=== PATIENT | female | born 1950 | race Caucasian/White ===

== ENCOUNTER 2023-07-18 03:57 | Inpatient (IN) | payer OTHER, SELFPAY ==
[2023-07-18] VITALS (65 sets, daily range): BP systolic 61–161; BP diastolic 44–121; PULSE 60–153; RESP 14–24; TEMP 36.1–39.4; O2SAT 90–99; BMI 38.4; BMI 35.1
[2023-07-18] MEDS: Etomidate 20 MG/10 ML Vial IV (04:02)
[2023-07-18] MEDS: Succinylcholine Chloride 200 MG/10 ML SYRINGE 100 MG IV (04:03)
--- NOTE | 2023-07-18 04:06 | EKG12_ITS ---
Test Reason : S/P CARDIAC ARREST Blood Pressure : / mmHG Vent. Rate : 150 BPM Atrial Rate : 000 BPM P-R Int : 000 ms QRS Dur : 098 ms QT Int : 284 ms P-R-T Axes : 000 003 085 degrees QTc Int : 448 ms Critical Test Result: High HR Supraventricular tachycardia Septal infarct , age undetermined ST & T wave abnormality, consider lateral ischemia Abnormal ECG Confirmed by YOSEF MCGILL, BRENDA ([id number]), photo editor RAÚL BARFIELD ([id number]) on 07/19/2023 5:56:17 AM Referred By: SHELLEY Confirmed By:BRENDA NAVAS MD
[2023-07-18] MEDS: Propofol 200 MG/20 ML Vial 60 MG IV BOLUS ×4 (04:14→06:01)
[2023-07-18] MEDS: fentaNYL drip 100 ML 2.5 MCG CONT INF (04:20)
--- NOTE | 2023-07-18 04:20 | RAD_ITS ---
EXAM: XR CHEST, 1 VIEW CLINICAL INDICATION: ett TECHNIQUE: Frontal view of the chest. COMPARISON: No relevant prior studies available. FINDINGS: LUNGS AND PLEURAL SPACES: Patchy opacity left lung base may be due to atelectasis and/or pneumonia. Opacity right lung apex may be due to atelectasis, pneumonia, or a mass. No pneumothorax. No effusion. HEART: Unremarkable. Cardiac silhouette not enlarged. MEDIASTINUM: Central airways and mediastinal contour are unremarkable. BONES/JOINTS: Unremarkable. No acute fracture. SOFT TISSUES: Unremarkable. TUBES, LINES AND DEVICES: Endotracheal tube tip is 2.1 cm above the jinny. NG tube is in the stomach. RAD/Chest 1 View (Portable) IMPRESSION: 1. Patchy opacity left lung base may be due to atelectasis and/or pneumonia. 2. Opacity right lung apex may be due to atelectasis, pneumonia, or a mass. 3. Endotracheal tube tip is 2.1 cm above the jinny. 4. NG tube is in the stomach. Electronically Signed: Marquise Farrell MD at 4:39 EST ,
[2023-07-18] MEDS: 0.9% Normal Saline (1000mL) 1,000 ML 1000 ML IV (04:21)
[2023-07-18 04:30] LABS: Absolute Lymphocyte Count 5.27 X10^3/uL (0.83-4.51); Absolute Neutrophil Count 12.8 X10^3/uL (2.0-7.7); Basophil# 0.11 X10^3/uL; Basophil% 0.6 % (0-1); Eosinophil# 0.11 X10^3/uL; Eosinophils% 0.6 % (0-5); Hematocrit 47.3 % (37-47); Hemoglobin 15.7 g/dL (12.0-15.0); Lymphocyte # 5.27 X10^3/ul (0.83-4.51); Lymphocyte % 27.3 % (19-41); Mean Corp Hgb Conc 33.2 g/dL (32-36); Mean Corpuscular Hgb 31.8 pg (27.0-32.0); Mean Corpuscular Volume 95.7 fL (81-99); Mean Platelet Vol. 10.6 fl (6.2-12.0); Monocyte# 0.89 X10^3/uL; Monocyte% 4.6 % (0-10); NRBC Flagged by Analyzer 0 % (0-5); Neutrophil # 12.79 X10^3/uL (2.7-7.7); Neutrophil % 66.3 % (47-70); POSITIVE DIFFERENTIAL YES; Platelet Count 282 K/mm3 (150-450); RBC Distribution Width CV 12.6 % (11.6-14.6); RBC Distribution Width SD 44.6 fl (35.1-43.9); Red Blood Count 4.94 M/mm3 (4.2-5.4); White Blood Count 19.3 K/mm3 (4.4-11.0)
[2023-07-18 04:31] LABS: Differential Indicated SCAN CRITERIA MET
[2023-07-18] MEDS: Propofol 10MG/Ml 1,000 MG/100 ML Bottle 6.3 MG CONT INF (04:35)
[2023-07-18] MEDS: Heparin Injection (Vial) 5,000 UNIT/ML VIAL 4000 UNIT IV (04:44)
[2023-07-18] MEDS: HEPARIN/D5w 25,000 UNITS 25,000 UNITS/250 ML IV.SOLN. 10 UNITS CONT INF (04:47)
--- NOTE | 2023-07-18 04:48 | EX.ED.DYSGE1 ---
HPI History of Present Illness Chief Complaint: Unresponsive Informant: family and EMS Narrative Narrative: Patient presents via EMS with chest pain and unresponsiveness. EMS states they were called for a female with chest pain. They evaluated the patient in the house and obtained an EKG and transmitted this. This showed ST depressions in V2, V3, and V4 concerning for potential posterior infarct. EMS states they walked the patient to the squad because the porch was icy and smelly. Once in the squad patient became unresponsive. Defib pads were placed on the patient and she was in ventricular fibrillation. She was shocked 1 time at 200 J. She had return of pulse with this. She had shallow breathing. There was 1 medic in the back of the squad tried to manage the patient during transport. On arrival patient is moaning but does not respond to questions. Patient is electively intubated upon arrival. Family states that she is been having chest pain recently. also states that she has had some cough and congestion and thought she had a cold. She did vomit tonight just before EMS arrived. PFSH PFS Medical History Heart murmur Hypertension Medical History unable to obtain Home Medications amlodipine 5 mg tablet 5 mg PO DAILY 07/18/23 [History Last Taken Unknown] atorvastatin 40 mg tablet 40 mg PO DAILY 07/18/23 [History Last Taken Unknown] ezetimibe 10 mg tablet 10 mg PO QHS 07/18/23 [History Last Taken Unknown] lisinopril 20 mg-hydrochlorothiazide 12.5 mg tablet 1 tab PO DAILY 07/18/23 [History Last Taken Unknown] sertraline 100 mg tablet 100 mg PO DAILY 07/18/23 [History Last Taken Unknown] Allergy/AdvReac Type Severity Reaction Status Date / Time Penicillins Allergy PT UNABLE Verified 07/18/23 04:43 TO RESPOND-NEEDS F/U Surgical History unable to obtain Social History Smoking Status: Never smoker ROS ROS ED Review of Systems ROS Unobtainable: due to endotracheal tube EXAM Physical Exam Narrative Exam Narrative: Decreased responsiveness. Moaning and turning her head [id number]. Not responsive to questions. Does not follow commands. Const Vital Signs: 07/18/23 03:58 07/18/23 04:15 07/18/23 04:30 Temperature 97 F L Temperature Source Temporal Pulse Rate 153 H 152 H 109 H Respiratory Rate 24 H 17 20 H Blood Pressure 161/121 H 142/86 H Blood Pressure Mean 134 104 Pulse Ox 92 94 94 Oxygen Delivery Method Non-Rebreather Mechanical Ventilator Mechanical Ventilator Oxygen Flow Rate (L/min) 15 Fraction of Inspired Oxygen (FIO2) 100 07/18/23 04:55 07/18/23 05:18 07/18/23 04:15 Temperature Temperature Source Pulse Rate 123 H 109 H 138 H Respiratory Rate 24 H 23 H 23 H Blood Pressure 96/66 101/68 Blood Pressure Mean 76 79 Pulse Ox 96 96 94 Oxygen Delivery Method Room Air Mechanical Ventilator Oxygen Flow Rate (L/min) Fraction of Inspired Oxygen (FIO2) 100 100 07/18/23 05:30 Temperature Temperature Source Pulse Rate 112 H Respiratory Rate 16 Blood Pressure 105/67 Blood Pressure Mean 79 Pulse Ox 98 Oxygen Delivery Method Mechanical Ventilator Oxygen Flow Rate (L/min) Fraction of Inspired Oxygen (FIO2) Positive obese Nutritional Appearance: obese HEENT Reports moist mucous membranes HEENT Narrative: No evidence of head trauma. Chest Wall inspection of chest normal and palpation of chest normal Resp Resp Narrative: Rales in the bilateral bases. Cardio Rate: tachycardic GI non-tender Palpation: soft Extremity normal to inspection Neuro Neuro Narrative: Decreased responsiveness. Moans but does not respond to questions or follow commands. Skin no rashes or lesions noted MDM MDM MDM Narrative Medical decision making narrative: Patient electively intubated on arrival. IV lines were established and patient given 20 mg of etomidate and 100 mg of succinylcholine. Patient was intubated using glide scope on first attempt. Good color change noted as well as bilateral breath sounds. EKG obtained to evaluate for cardiac arrhythmia/ischemia. Chest x-ray obtained to evaluate for acute lung pathology, cardiac size, or mediastinal abnormality. Labwork obtained to evaluate for leukocytosis, anemia, and electrolyte derangement. History & Record Review Discussion w/independent historian: EMS personnel and Family Lab Data Attestation: I reviewed the patient's lab results. Labs: Laboratory Results - last 24 hr 07/18/23 07/18/23 07/18/23 04:10 04:40 05:00 WBC 19.3 H RBC 4.94 Hgb 15.7 H Hct 47.3 H MCV 95.7 MCH 31.8 MCHC 33.2 RDW Std Deviation 44.6 H RDW Coeff of Ronnell 12.6 Plt Count 282 MPV 10.6 Immature Gran % (Auto) 0.600 Neut % (Auto) 66.3 Lymph % (Auto) 27.3 [place] % (Auto) 4.6 Eos % (Auto) 0.6 Baso % (Auto) 0.6 Absolute Neuts (auto) 12.8 H Absolute Lymphs (auto) 5.27 H Nucleated RBC % 0 Differential Comment SCANNED PT 13.2 INR 1.0 APTT 29.0 D-Dimer Quant (PE/DVT) 0.43 Sodium 140 Potassium 3.8 Chloride 103 Carbon Dioxide 21.0 Anion Gap 16 H BUN 10 Creatinine 0.83 Estim Creat Clear Calc 56.75 Est GFR (MDRD) Af Amer 87 Est GFR (MDRD) Non-Af 72 BUN/Creatinine Ratio 12.0 Glucose 220 H Lactic Acid 5.4 H* Calcium 8.8 Total Bilirubin 0.40 Direct Bilirubin 0.12 AST 45 H ALT 46 Alkaline Phosphatase 100 Total Creatine Kinase 72 Troponin I High Sens 164 H* B-Natriuretic Peptide 130.6 H Total Protein 8.3 H Albumin 3.8 Globulin 4.5 H Triglycerides 202 H Lipase 39 Urine Opiates Screen NEGATIVE Urine Methadone Screen NEGATIVE Ur Barbiturates Screen NEGATIVE Ur Phencyclidine Scrn NEGATIVE Ur Amphetamines Screen NEGATIVE MDMA (Ecstasy) Screen NEGATIVE U Benzodiazepines Scrn NEGATIVE Urine Cocaine Screen NEGATIVE U Cannabinoids Screen NEGATIVE Ur Drug Screen Comment Ethyl Alcohol < 3.0 ABG Data ABG results: ABG 07/18/23 05:01 Specimen Type ART Sample Site R Radial pH 7.28 L Bicarbonate Actual 23.4 Total CO2 25 Base Excess -3 L O2 Saturation 93 L O2 % 100.0 ABG pCO2 50.1 H ABG pO2 76 Catalino Test Positive Respiration Rate 14 O2 Delivery Device Adult Vent Vent Mode AC Tidal Volume 450.0 POC PEEP 8 Radiography Chest X-Ray - ED: 1 View, Read by ED Physician, Right Infiltrate, Left Infiltrate and - (ET tube terminates just superior to the jinny.) Diagnostic Testing: Clinical Impression(s) from Imaging Studies Chest X-Ray 07/18/23 04:20 IMPRESSION: 1. Patchy opacity left lung base may be due to atelectasis and/or pneumonia. 2. Opacity right lung apex may be due to atelectasis, pneumonia, or a mass. 3. Endotracheal tube tip is 2.1 cm above the jinny. 4. NG tube is in the stomach. Electronically Signed: Marquise Farrell MD at 4:39 EST , EKG Initial EKG: Attestation: I personally reviewed and interpreted this EKG as follows: Interpretation: Sinus Tachycardia (Sinus tach at 150.) Treatment and Re-Evaluation :: EKG on arrival shows sinus tachycardia at 150. The ST depression previously noted on the prehospital EKG is not evident. I sent both the prehospital EKG and the EKG obtained in the ED to Dr. Roque, cardiology. He agreed patient does not meet STEMI criteria at this time. He does wish the patient to be started on heparin. Patient is sedated with fentanyl and propofol. CBC was elevated white count of 19.3 with normal differential. Hemoglobin is concentrated at 15.7. Chemistry studies are largely unremarkable with normal renal function. Potassium is normal at 3.8. Glucose is 220. CK is normal at 72. Troponin is 164. LFTs and lipase are unremarkable. EtOH is negative. D-dimer is normal at 0.43. ABG reveals a pH of 7.277, pCO2 of 50.1, pO2 of 76, bicarb 23.4, sat 92.9%. Portable chest x-ray per my interpretation reveals bilateral infiltrates. Patient was reportedly vomiting just before EMS arrival and I do have some concern that she may have aspirated. She has also had cold-like symptoms recently and this may be pneumonia from her illness. She is given a dose of Rocephin and Flagyl to cover aspiration. Family has been updated multiple times during the patient's stay. She is following commands at this time. I spoke with the hospitalist who will see the patient for admission to the ICU. Critical Care Time Critical Care Time: Yes Critical care time (excluding procedures): 30-74 minutes (60 minutes), Including time spent:, Discussing w/Patient &/or Family/Rivet Hammer Machine Operator, Discussing w/Consultants, Arranging Admission or Transfer and Performing Direct Patient Care at Bedside Discharge Plan Dx/Rx/DC Orders Clinical Impression: Elevated troponin, Cardiac arrest with ventricular fibrillation, Pneumonia Disposition Disposition: Acute Care Hospital [facility] Discharge Date/Time: 07/18/23 06:14
[2023-07-18 04:51] LABS: CPK Total, Creatine Kinase 72 U/L (26-192); Triglycerides 202 mg/dL
[2023-07-18 04:55] LABS: D-Dimer Quantitative (DVT/PE) 0.43 FEU/ug/m (0.27-0.49)
[2023-07-18] MEDS: Ceftriaxone 1 GM/50 ML BAG IV (05:00)
[2023-07-18 05:01] LABS: Alcohol, Blood (Medical)-Serum < 3.0 mg/dL
[2023-07-18] MEDS: Midazolam 2 MG/2 ML Syringe IV ×2 (05:05→05:45)
[2023-07-18 05:07] LABS: Allen Test Positive; Base Excess -3 mmol/L (-2 to +2); Bicarbonate 23.4 mmol/L (22-26); Blood Gas Specimen Type ART; Mode AC; O2 Delivery Device Adult Vent; PEEP 8; PO2 76 mmHG (75-100); RR 14; SITE R Radial; SO2 93 % (95-99); Total Carbon Dioxide 25 mmol/L; pCO2 50.1 mmHg (35-45); pH 7.28 (7.35-7.45)
[2023-07-18 05:09] LABS: AST(SGOT) 45 U/L (15-37); Alanine Aminotransfer ALT/SGPT 46 U/L (13-56); Albumin, Serum 3.8 g/dL (3.2-5.0); Alkaline Phosphatase 100 U/L (45-117); Anion Gap 16 (5-15); BUN 10 mg/dL (7-18); Bilirubin, Direct 0.12 mg/dL (0.00-0.30); Calcium,Total 8.8 mg/dL (8.5-10.1); Chloride 103 mmol/L (98-107); Creatinine, Serum 0.83 mg/dL (0.55-1.02); EST Glomerular Filtration Rate 72 mL/min (>60); Est Glom Filt Rate - Afr Amer 87 mL/min (>60); Estimated Creatinine Clearance 56.75 ml/min; Globulin 4.5 g/dL (2.2-4.2); Glucose 220 mg/dL (74-106); Lipase 39 U/L (13-75); Potassium 3.8 mmol/L (3.5-5.1); Protein, Total 8.3 g/dL (6.4-8.2); Sodium Level 140 mmol/L (136-145); Troponin-I HS (w/2H Reflex) 164 pg/mL (3.0-54.0)
[2023-07-18] MEDS: metroNIDAZOLE 500 MG/100 ML BAG 100 MG IV (05:17)
[2023-07-18 05:18] LABS: Prothrombin Time (Protime)PT. 13.2 SECONDS (11.7-14.9)
[2023-07-18 05:36] LABS: BNP,B-Type NATRIURETIC PEPTIDE 130.6 pg/mL (0-100)
[2023-07-18 05:38] LABS: Lactic Acid 5.4 mmol/L (0.4-1.9)
[2023-07-18 05:38] LABS: Amphetamine Urine VISTA NEGATIVE (<1000 ng/mL); Barbiturate Urine VISTA NEGATIVE (< 200 ng/mL); Benzodiazepine Urine VISTA NEGATIVE (< 200 ng/mL); Cocaine Urine VISTA NEGATIVE (< 300 ng/mL); Ecstacy Urine VISTA NEGATIVE (< 500 ng/mL); Methadone Urine VISTA NEGATIVE (< 300 ng/mL); PCP Urine VISTA NEGATIVE (< 25 ng/mL); THC Urine VISTA NEGATIVE (< 50 ng/mL); Vista UDS pH Range 5
--- NOTE | 2023-07-18 05:44 | PCM.HP.STD ---
HPI - General General Date of Admission: 07/18/23 Date of Service: 07/18/23 Chief Complaint: Chest pain and unresponsiveness HPI Narrative JASON RAUSCH, is a 72 F with a past medical history of essential hypertension, hyperlipidemia, obesity; with BMI of 38.4 this admission, known heart murmur and depression who presents to [facility] ER with complaints of chest pain and unresponsiveness. Mrs. Shafer is not a reliable historian at this time as she was shocked by EMS and then intubated shortly after arrival so information was gathered from chart, medical staff and computer. According to the records EMS was called for female with chest pain. There initial EKG revealed ST depressions in V2, V3 and V4 concerning for potential inferior AZ and once she was in the squad patient became unresponsive. According to her cardiac exercise specialist she was noted to be in ventricular fibrillation and she was shocked 1 time at 200 J with return of normal sinus rhythm. Upon arrival she was noted to have shallow breathing and was moaning but did not respond to questions and was then electively intubated. Her family informed the ER that she had been having chest pain recently in addition to cough and congestion so they thought she had a cold. Her also stated that she vomited twice with bilious emesis prior to EMS's arrival. Her family denies any personal history of cardiac arrest, AZ or other similar previous episdoes. In the ER her initial troponin was noted to be elevated at 164 pg/mL consistent with a suspected non-ST elevation AZ along with laboratory evidence of lactic acidosis of 5.4 mmol/L present on admission with a pH of 7.28/pCO2 25/PaO2 of 93/bicarbonate 23.4 on ventilator with a respiratory rate 14/tidal volume 450 with 8 of PEEP and 100% FiO2 in the setting of V-fib arrest complicated by suspected bibasilar pneumonia due to aspiration on chest x-ray with leukocytosis of 19.3 present on admission and a fever of 101.1 degrees Fahrenheit present on admission concerning for possible underlying sepsis and she was then admitted to the ICU for ongoing care for a stay that is expected to be greater than 48 hours. [facility] Medical History Heart murmur Hypertension Medical History unable to obtain Home Medications amlodipine 5 mg tablet 5 mg PO DAILY 07/18/23 [History Last Taken Unknown] atorvastatin 40 mg tablet 40 mg PO DAILY 07/18/23 [History Last Taken Unknown] ezetimibe 10 mg tablet 10 mg PO QHS 07/18/23 [History Last Taken Unknown] lisinopril 20 mg-hydrochlorothiazide 12.5 mg tablet 1 tab PO DAILY 07/18/23 [History Last Taken Unknown] sertraline 100 mg tablet 100 mg PO DAILY 07/18/23 [History Last Taken Unknown] Allergy/AdvReac Type Severity Reaction Status Date / Time Penicillins Allergy PT UNABLE Verified 07/18/23 04:43 TO RESPOND-NEEDS F/U Surgical History unable to obtain Social History Smoking Status: Never smoker ROS ROS Narrative Patient is intubated and sedated therefore review of systems was not possible at this time. Review of Systems ROS Unobtainable: due to endotracheal tube and due to mental condition Vital Signs Vital Signs Vital Signs: 07/18/23 03:58 07/18/23 04:15 07/18/23 04:30 Temperature 97 F L Temperature Source Temporal Pulse Rate 153 H 152 H 109 H Respiratory Rate 24 H 17 20 H Blood Pressure 161/121 H 142/86 H Blood Pressure Mean 134 104 Pulse Ox 92 94 94 Oxygen Delivery Method Non-Rebreather Mechanical Ventilator Mechanical Ventilator Oxygen Flow Rate (L/min) 15 Fraction of Inspired Oxygen (FIO2) 100 07/18/23 04:55 07/18/23 05:18 07/18/23 04:15 Temperature Temperature Source Pulse Rate 123 H 109 H 138 H Respiratory Rate 24 H 23 H 23 H Blood Pressure 96/66 101/68 Blood Pressure Mean 76 79 Pulse Ox 96 96 94 Oxygen Delivery Method Room Air Mechanical Ventilator Oxygen Flow Rate (L/min) Fraction of Inspired Oxygen (FIO2) 100 100 Weight Weight: 230 lb 13.184 oz Body Mass Index (BMI) 38.4 Physical Exam Const Constitutional Narrative: Patient is intubated and sedated. Patient denies pain at this time. HEENT normocephalic and head/scalp atraumatic HEENT Narrative: ET tube in place. Eyes PERRL Neck no lymphadenopathy and supple Resp Resp Narrative: Diminished breath sounds throughout with bibasilar rhonchi. Auscultation: rhonchi Cardio regular rate and regular rhythm Cardio Narrative: Tachycardia noted at ~112 bpm. GI normal to inspection, nondistended, normoactive bowel sounds, soft to palpation, non-tender and non-distended GI Narrative: Obese. Extremity normal to inspection Skin Skin Narrative: Patient has no evidence of rash at this time. Neuro Neuro Narrative: Patient is sedated on ventilator and intubated. Psych Psych Narrative: Sedated on ventilator and intubated. Results Medical Records Data Attestation: I reviewed the patient's medical records Lab / Micro Data Attestation: I reviewed the patient's lab results. 07/18/23 04:10 07/18/23 04:10 Labs: Laboratory Results - last 24 hr 07/18/23 04:10: WBC 19.3 H, RBC 4.94, Hgb 15.7 H, Hct 47.3 H, MCV 95.7, MCH 31.8, MCHC 33.2, RDW Std Deviation 44.6 H, RDW Coeff of Ronnell 12.6, Plt Count 282, MPV 10.6, Immature Gran % (Auto) 0.600, Neut % (Auto) 66.3, Lymph % (Auto) 27.3, [place] % (Auto) 4.6, Eos % (Auto) 0.6, Baso % (Auto) 0.6, Absolute Neuts (auto) 12.8 H, Absolute Lymphs (auto) 5.27 H, Nucleated RBC % 0, PT 13.2, INR 1.0, APTT 29.0, D-Dimer Quant (PE/DVT) 0.43, Sodium 140, Potassium 3.8, Chloride 103, Carbon Dioxide 21.0, Anion Gap 16 H, BUN 10, Creatinine 0.83, Estim Creat Clear Calc 56.75, Est GFR (MDRD) Af Amer 87, Est GFR (MDRD) Non-Af 72, BUN/Creatinine Ratio 12.0, Glucose 220 H, Calcium 8.8, Total Bilirubin 0.40, Direct Bilirubin 0.12, AST 45 H, ALT 46, Alkaline Phosphatase 100, Total Creatine Kinase 72, Troponin I High Sens 164 H*, B-Natriuretic Peptide 130.6 H, Total Protein 8.3 H, Albumin 3.8, Globulin 4.5 H, Triglycerides 202 H, Lipase 39, Ethyl Alcohol < 3.0 07/18/23 04:40: Lactic Acid 5.4 H* 07/18/23 05:00: Urine Opiates Screen NEGATIVE, Urine Methadone Screen NEGATIVE, Ur Barbiturates Screen NEGATIVE, Ur Phencyclidine Scrn NEGATIVE, Ur Amphetamines Screen NEGATIVE, MDMA (Ecstasy) Screen NEGATIVE, U Benzodiazepines Scrn NEGATIVE, Urine Cocaine Screen NEGATIVE, U Cannabinoids Screen NEGATIVE, Ur Drug Screen Comment ABG Data ABG results: ABG 07/18/23 05:01 Specimen Type ART Sample Site R Radial pH 7.28 L Bicarbonate Actual 23.4 Total CO2 25 Base Excess -3 L O2 Saturation 93 L O2 % 100.0 ABG pCO2 50.1 H ABG pO2 76 Catalino Test Positive Respiration Rate 14 O2 Delivery Device Adult Vent Vent Mode AC Tidal Volume 450.0 POC PEEP 8 Attestation: I personally reviewed and interpreted this ABG as follows: Imagaing Radiology Impression Chest X-Ray 07/18/23 04:20 IMPRESSION: 1. Patchy opacity left lung base may be due to atelectasis and/or pneumonia. 2. Opacity right lung apex may be due to atelectasis, pneumonia, or a mass. 3. Endotracheal tube tip is 2.1 cm above the jinny. 4. NG tube is in the stomach. Electronically Signed: Marquise Farrell MD at 4:39 EST , Assessment & Plan Assessment/Plan (1) Cardiac arrest with ventricular fibrillation: (2) Elevated troponin: (3) Pneumonia: QUALIFIERS: Laterality: bilateral Lung location: lower lobe of lung Pneumonia type: due to unspecified organism Qualified Code(s): J18.9 - Pneumonia, unspecified organism (4) Sepsis: QUALIFIERS: Acute respiratory failure type: with hypoxia Sepsis acute organ dysfunction status: with acute organ dysfunction Sepsis type: sepsis due to unspecified organism Severe sepsis acute organ dysfunction type: acute respiratory failure Severe sepsis shock status: without septic shock Qualified Code(s): A41.9 - Sepsis, unspecified organism; R65.20 - Severe sepsis without septic shock; J96.01 - Acute respiratory failure with hypoxia PLAN: Plan 1. Cardiac arrest with ventricular fibrillation and elevated troponin of 164 ng/mL present on admission consistent with suspected non-ST elevation [place] in the setting of a known heart murmur - Admit to ICU. Continue IV heparin and initiate treatment with aspirin, Plavix and statin. Serialize troponin. Check echocardiogram to evaluate left ventricular ejection fraction. Finally, we will consult professor of historical theology on-call to see this patient on rounds in the a.m. for recommendations regarding possible left heart cath with help appreciated in advance. 2. Bibasilar pneumonia likely due to aspiration with leukocytosis of 19.3 present on admission, fever of 101.1 ?F present on admission and lactic acidosis of 5.4 mmol/L present on admission triggering criteria for sepsis complicating #1 - Continue broad-spectrum antibiotics and await culture and sensitivity data. Give Tylenol as needed for pain or fever. Recheck lactate to ensure positive response to therapy. 3. Acute hypoxic respiratory failure requiring intubation arising from #1 & #2 - Wean ventilator as tolerated. 4. Essential hypertension - Hold scheduled antihypertensives in light of #2. Give IV hydralazine as needed for systolic blood pressure greater than 160 mmHg. 5. Hyperlipidemia - Resume home regimen and recheck lipid profile. 6. Obesity; with BMI of 38.4 this admission - Weight loss will be recommended. Check TSH. 7. Depression - Restart home medications when patient regained consciousness. 8. DVT prophylaxis - Patient already on IV heparin for #1. Total time: Approximately 85 minutes. Sepsis Attestation Sepsis Attestation: Agree w/Sepsis Date exam was performed: 07/18/23 Time exam was performed: 06:00 Possible Source of Sepsis: Pulmonary Sepsis Organ Dysfunction Criteria Present: Acute Respiratory Failure (New need for BiPAP/CPAP or MV), Lactic Acid > 2 mmol/L and New/Unexplained change in mental status Fluid Resuscitation Fluid resuscitation indicated?: Yes Fluid Resuscitation ordered: 30 ml/kg fluid bolus ordered Amount of fluid ordered: 3 Sepsis Note Date exam was performed: 07/18/23 Time exam was performed: 07:09 Sepsis Attestation: Sepsis re-evaluation was performed Response to fluids: Fluid responsive hypotension Charges/Coding Visit Charges Inpatient E&M: 08816 Init Hosp L3
[2023-07-18] MEDS: Midazolam 50 MG in 0.9% Normal Saline (100mL Bag) 90 ML CONT INF (05:46)
[2023-07-18] MEDS: 0.9% Normal Saline (1000mL) 1,000 ML 150 ML IV (05:48)
[2023-07-18 05:58] LABS: Differential Comment SCANNED
--- NOTE | 2023-07-18 06:16 | ECHOCS_ITS ---
Reason For Study: CARDIAC ARREST Procedure This was a 2D Doppler, Color Flow transthoracic echocardiogram. The study was technically difficult. Exam performed portable in ICU/CCU. Left Ventricle Normal LV size. The estimated ejection fraction is 25 %. Severe segmental systolic dysfunction (see wall motion). Stage 2 diastolic dysfunction. [place] is akinetic. Mid-anteroseptal : Hypokinetic. Mid- Posterior: Hypokinetic. Mid-Inferior: Hypokinetic. Mid-inferoseptal : Hypokinetic. Right Ventricle Normal RV size. Normal systolic function. Atria The left and right atria are normal. Mitral Valve There is Moderate focal posterior mitral annular calcification. Tricuspid Valve Normal tricuspid valve. Trivial tricuspid valve insufficiency. Right ventricular systolic pressure estimated to be 53 mmHg. Aortic Valve Trisinus/trileaflet aortic valve. Mild focal aortic valve calcification. Mild aortic stenosis. Peak aortic valve gradient 16 mmHg. Mean aortic valve gradient 10 mmHg. Pulmonic Valve The pulmonic valve is not well visualized. Great Vessels Normal aortic root. Pericardium/Pleural No pericardial effusion. Medication Diluted definity 6ml given slow IV push to enhance endocardial definition. MMode/2D Measurements & Calculations LVIDd: 4.3 cm IVSd: 1.1 cm LVOT diam: 2.0 cm LVIDs: 3.1 cm LVPWd: 1.1 cm RVDd: 3.3 cm FS: 29.4 % LVOT area: 3.2 cm2 Ao root diam: 3.2 cm LAV(MOD-bp): 45.9 ml LVAd ap4: 27.6 cm2 LAV(MOD-bp) Indexed: 21.9 ml/m2 LVLd ap4: 7.1 cm LAV(MOD-sp2): 48.1 ml EDV(MOD-sp4): 86.0 ml LAV(MOD-sp4): 41.2 ml EDV(sp4-el): 91.5 ml LVAs ap4: 21.3 cm2 LVLs ap4: 7.0 cm ESV(MOD-sp4): 51.1 ml ESV(sp4-el): 54.7 ml EF(MOD-sp4): 40.6 % EF(sp4-el): 40.2 % SV(MOD-sp4): 34.9 ml SV(sp4-el): 36.8 ml LA A4 area: 16.3 cm2 LA dimension(2D): 4.0 cm RA A4 area: 13.0 cm2 Time Measurements MV dec time: 0.15 sec Doppler Measurements & Calculations MV E max zay: 89.0 cm/sec Lat Peak E' Zay: 5.9 cm/sec Med Peak E' Zay: 5.8 cm/sec MV A max zay: 95.0 cm/sec E/E' lat: 15.1 E/E' med: 15.4 MV E/A: 0.94 Ao V2 max: 201.6 cm/sec LV V1 max: 74.2 cm/sec SV(LVOT): 47.9 ml Ao max P.3 mmHg LV V1 max P.2 mmHg Ao V2 mean: 149.2 cm/sec LV V1 mean P.2 mmHg Ao mean P.9 mmHg LV V1 mean: 51.3 cm/sec Ao V2 VTI: 35.3 cm LV V1 VTI: 14.9 cm AV (velocity ratio): 0.42 SARAH(I,D): 1.4 cm2 SARAH(V,D): 1.2 cm2 PA V2 max: 82.5 cm/sec TR max zay: 336.1 cm/sec TR max P.2 mmHg ECHO/Echo Complete W/ Contrast Interpretation Summary The estimated ejection fraction is 25 %. Severe segmental systolic dysfunction (see wall motion). Stage 2 diastolic dysfunction. Mild aortic stenosis. Right ventricular systolic pressure estimated to be 53 mmHg. Contrast echo used/Definity. No previous echo to compare The study was technically difficult. Contrast injection was performed. Ordering Physician: Canelo Pierce Referring Physician: LALITHA CERVANTES Performed By: Bernadette Wynn RDCS
--- NOTE | 2023-07-18 06:17 | EKG12_ITS ---
Test Reason : Blood Pressure : / mmHG Vent. Rate : 079 BPM Atrial Rate : 079 BPM P-R Int : 142 ms QRS Dur : 082 ms QT Int : 396 ms P-R-T Axes : 052 012 058 degrees QTc Int : 454 ms Sinus rhythm with occasional Premature ventricular complexes Septal infarct , age undetermined Abnormal ECG Confirmed by YOSEF MCGILL, BRENDA ([id number]), senior technical editor YOSSI JEWELL ([id number]) on 07/20/2023 10:52:37 AM Referred By: KARAN Confirmed By:BRENDA NAVAS MD
[2023-07-18 06:23] LABS: Reflex Troponin-HS? (from REC) Y
[2023-07-18] MEDS: Lactated Ringers 1,000 ML 999 ML IV ×4 (07:09→10:17)
[2023-07-18] MEDS: Vancomycin HCl 2,000 MG in 0.9% Normal Saline (500mL Bag) 500 ML 250 MG IV (07:09)
[2023-07-18 07:17] LABS: Troponin-I HS 1333 pg/mL (3.0-54.0)
--- NOTE | 2023-07-18 07:20 | PCM.PN.BLA ---
Progress Note Patient is a 72-year-old lady who was brought to the emergency department following cardiac arrest while send route to the hospital. Apparently did develop ventricular fibrillation and was shocked with 200 J after she had called for chest pain. Per report patient had been sick for a couple of days prior to being admitted. Patient was emergently intubated in the ED. Checks x-ray obtained in the ED did show patchy opacity in the left lung base. Was also found to have elevated troponin. Admitted to the intensive care unit where patient is currently being managed Patient seen and examined. Initial assessment including history and physical diagnostic data and management orders reviewed will follow.
[2023-07-18 07:48] LABS: Base Excess 0 mmol/L (-2 to +2); Bicarbonate 25.7 mmol/L (22-26); Blood Gas Specimen Type ART; Mode AC; O2 Delivery Device Not entered; PEEP 8; PO2 90 mmHG (75-100); RR 14; SITE L Radial; SO2 96 % (95-99); Total Carbon Dioxide 27 mmol/L; pCO2 47.2 mmHg (35-45); pH 7.34 (7.35-7.45)
--- NOTE | 2023-07-18 08:20 | CON.PCM.CC_ITS ---
Assessment & Plan Assessment/Plan (1) Cardiac arrest with ventricular fibrillation: (2) Sepsis: QUALIFIERS: Acute respiratory failure type: with hypoxia Sepsis acute organ dysfunction status: with acute organ dysfunction Sepsis type: sepsis due to unspecified organism Severe sepsis acute organ dysfunction type: acute respiratory failure Severe sepsis shock status: without septic shock Qualified Code(s): A41.9 - Sepsis, unspecified organism; R65.20 - Severe sepsis without septic shock; J96.01 - Acute respiratory failure with hypoxia PLAN: Plan RECOMMENDATIONS: 1. Continue assist-control mode mechanical ventilation. Wean FiO2 and PEEP to maintain saturations at or above 90%. 2. Initiate empiric antimicrobials, pending infectious workup. 3. Await results of respiratory viral panel. 4. Await cardiology consultation and results of echocardiogram. 5. Continue heparin infusion for now. 6. Precedex and fentanyl for sedation. 7. Continue appropriate GI prophylaxis. IMPRESSIONS: 1. Acute combined respiratory failure in the setting of V-fib cardiac arrest Unclear precipitating etiology for ventricular fibrillation. However, the patient was urgently intubated in the emergency department. Her acid-base status has improved with invasive mechanical ventilatory support. Plan to continue current supportive measures, including assist-control mode of mechanical ventilation. FiO2 and PEEP will be weaned to maintain saturations at or above 90%. Over concerns for underlying pneumonia, the patient will be continued on broad-spectrum antimicrobials, pending infectious workup. Cardiology consultation and echocardiogram are pending. 2. Sepsis The patient presented to the hospital with sepsis due to probable pneumonia with acute sepsis related organ dysfunction as evidenced by lactic acidemia and acute respiratory failure, requiring invasive mechanical ventilatory support. The patient did receive supplemental IV fluid hydration and remains hemodynamically stable. Plan to continue broad-spectrum antimicrobials, pending infectious workup. 3. Troponin elevation/suspected NSTEMI Cardiology consultation is pending along with echocardiogram. Continue heparin infusion for now. 4. History of hypertension/hyperlipidemia/obesity/depression Complicates care, management, recovery and prognosis. Continue supportive measures as noted above. TIME: 36 minutes of critical care time, independent of procedures, was spent addressing the patient's acute combined respiratory failure, V-fib cardiac arrest, sepsis, NSTEMI, review of all data and collaboration with the care team. HPI Consult Data Date of Consult: 07/18/23 HPI Narrative Reason for Consultation: Respiratory failure HPI Narrative: The patient is a 72-year-old female, with a history as outlined below, who presented to the emergency department via EMS on July 18 with chest pain. According to documentation, EMS was contacted over concerns for chest pain. On their initial evaluation of the patient, EKG demonstrated findings concerning for potential posterior infarct. Once the patient was placed into the ambulance, she became acutely unresponsive. She was noted to be in ventricular fibrillation and was shocked at 200 J with return of spontaneous circulation. On arrival to the emergency department, she was emergently intubated. The patient has a documented history of hypertension, hyperlipidemia and heart murmur. The patient's family confirmed that the patient had been ill several days prior to her arrival with cold-like symptoms including cough and chest congestion. She apparently had 2 episodes of bilious emesis prior to EMS arrival. Initial laboratory evaluation revealed an elevated white blood cell count to 20,000. Coagulation profile was unremarkable. Chemistry profile was notable only for an elevated lactate of 5.4. Initial troponin was elevated at 164 with a BNP of 130. Toxicology and alcohol screens were negative. Chest imaging demonstrated a airspace opacity in the left lung base. The patient was initiated on supplemental IV fluids and antimicrobials. She was subsequently admitted to the medical intensive care unit for further management. [facility] Medical History Heart murmur Hypertension Medical History unable to obtain Home Medications amlodipine 5 mg tablet 5 mg PO DAILY 07/18/23 [History Last Taken Unknown] atorvastatin 40 mg tablet 40 mg PO DAILY 07/18/23 [History Last Taken Unknown] ezetimibe 10 mg tablet 10 mg PO QHS 07/18/23 [History Last Taken Unknown] lisinopril 20 mg-hydrochlorothiazide 12.5 mg tablet 1 tab PO DAILY 07/18/23 [History Last Taken Unknown] sertraline 100 mg tablet 100 mg PO DAILY 07/18/23 [History Last Taken Unknown] Allergy/AdvReac Type Severity Reaction Status Date / Time Penicillins Allergy PT UNABLE Verified 07/18/23 04:43 TO RESPOND-NEEDS F/U Surgical History unable to obtain Social History Smoking Status: Never smoker ROS Review of Systems ROS Unobtainable: due to endotracheal tube Physical Exam Const Constitutional Narrative: Intubated, sedated and mechanically ventilated. No ventilator dyssynchrony. HEENT normocephalic and head/scalp atraumatic Mouth: endotracheal tube in place and OG tube in place Eyes PERRL and EOMs intact bilaterally Neck supple General: trachea midline Chest inspection of chest normal Resp Auscultation: diminished lung sounds; Negative for rales, rhonchi or wheezes Cardio regular rate and regular rhythm GI normal to inspection, nondistended, normoactive bowel sounds Extremity no clubbing, cyanosis or edema Skin no rashes or lesions noted Neuro Sensorium / Orientation: sedated on vent Lab / Micro Data 07/18/23 04:10 07/18/23 04:10 Labs: Laboratory Results - last 24 hr 07/18/23 04:10: WBC 19.3 H, RBC 4.94, Hgb 15.7 H, Hct 47.3 H, MCV 95.7, MCH 31.8, MCHC 33.2, RDW Std Deviation 44.6 H, RDW Coeff of Ronnell 12.6, Plt Count 282, MPV 10.6, Immature Gran % (Auto) 0.600, Neut % (Auto) 66.3, Lymph % (Auto) 27.3, Humphreys % (Auto) 4.6, Eos % (Auto) 0.6, Baso % (Auto) 0.6, Absolute Neuts (auto) 12.8 H, Absolute Lymphs (auto) 5.27 H, Nucleated RBC % 0, Differential Comment SCANNED, PT 13.2, INR 1.0, APTT 29.0, D-Dimer Quant (PE/DVT) 0.43, Sodium 140, Potassium 3.8, Chloride 103, Carbon Dioxide 21.0, Anion Gap 16 H, BUN 10, Creatinine 0.83, Estim Creat Clear Calc 56.75, Est GFR (MDRD) Af Amer 87, Est GFR (MDRD) Non-Af 72, BUN/Creatinine Ratio 12.0, Glucose 220 H, Calcium 8.8, Total Bilirubin 0.40, Direct Bilirubin 0.12, AST 45 H, ALT 46, Alkaline Jigar sphatase 100, Total Creatine Kinase 72, Troponin I High Sens 164 H*, B- Natriuretic Peptide 130.6 H, Total Protein 8.3 H, Albumin 3.8, Globulin 4.5 H, Triglycerides 202 H, Lipase 39, Ethyl Alcohol < 3.0 07/18/23 04:40: Lactic Acid 5.4 H* 07/18/23 05:00: Urine Opiates Screen NEGATIVE, Urine Methadone Screen NEGATIVE, Ur Barbiturates Screen NEGATIVE, Ur Phencyclidine Scrn NEGATIVE, Ur Amphetamines Screen NEGATIVE, MDMA (Ecstasy) Screen NEGATIVE, U Benzodiazepines Scrn NEGATIVE, Urine Cocaine Screen NEGATIVE, U Cannabinoids Screen NEGATIVE, Ur Drug Screen Comment 07/18/23 06:30: Troponin I High Sens 1333 H* Micro: Microbiology 07/18/23 05:00 Urine Catheter - Catheter Legionella Antigen - Final 07/18/23 05:00 Urine Catheter - Catheter Streptococcus pneumoniae Antigen (M - Final ABG Data ABG results: ABG 07/18/23 07/18/23 05:01 07:44 Specimen Type ART ART Sample Site R Radial L Radial pH 7.28 L 7.34 L Bicarbonate Actual 23.4 25.7 Total CO2 25 27 Base Excess -3 L 0 O2 Saturation 93 L 96 O2 % 100.0 80.0 ABG pCO2 50.1 H 47.2 H ABG pO2 76 90 Catalino Test Positive Respiration Rate 14 14 O2 Delivery Device Adult Vent Not entered Vent Mode AC AC Tidal Volume 450.0 450.0 POC PEEP 8 8 Imagaing Radiology Impression Chest X-Ray 07/18/23 04:20 IMPRESSION: 1. Patchy opacity left lung base may be due to atelectasis and/or pneumonia. 2. Opacity right lung apex may be due to atelectasis, pneumonia, or a mass. 3. Endotracheal tube tip is 2.1 cm above the jinny. 4. NG tube is in the stomach. Electronically Signed: Marquise Farrell MD at 4:39 EST , Charges/Coding Procedures Hospitalists Procedures: [id number] Critical Care 1st Hr
--- NOTE | 2023-07-18 08:34 | PCM.RX.CS ---
Consult Antibiotic Management Pharmacy has been consulted to manage selected antiobiotic: Vancomycin Type of Intervention Type of Consult: New start Suspected Infection Suspected Infection: Sepsis Prior Doses of Antibiotics Prior Doses of Antibiotics Received/Current Regimen: 07/18/23 @ 0709 2000MG A LOADING DOSE Labs Labs: Sodium 140 mmol/L (136-145) 07/18/23 04:10 Potassium 3.8 mmol/L (3.5-5.1) 07/18/23 04:10 Chloride 103 mmol/L (98-107) 07/18/23 04:10 Carbon Dioxide 21.0 mmol/L (21.0-32.0) 07/18/23 04:10 Anion Gap 16 (5-15) H 07/18/23 04:10 BUN 10 mg/dL (7-18) 07/18/23 04:10 Creatinine 0.83 mg/dL (0.55-1.02) 07/18/23 04:10 Est GFR (MDRD) Af Amer 87 mL/min (>60) 07/18/23 04:10 Est GFR (MDRD) Non-Af 72 mL/min (>60) 07/18/23 04:10 BUN/Creatinine Ratio 12.0 RATIO (10-20) 07/18/23 04:10 Glucose 220 mg/dL (74-106) H 07/18/23 04:10 Microbiology Microbiology: Microbiology 07/18/23 05:00 Urine Catheter - Catheter Legionella Antigen - Final 07/18/23 05:00 Urine Catheter - Catheter Streptococcus pneumoniae Antigen (M - Final Dosing Weight Weight used for dosin kg Estimated Creatinine Clearance Estimated Creatinine Clearance: 57 Pharmacy Plan for Drug Dosing Pharmacy Plan for Drug Dosing: start 1000mg of Vancomycin 07/18/23 @ 1900 Pharmacy Service will continue to monitor and adjust dosing as required. Follow-Up Labs Follow-Up Labs: Trough: Vancomycin Date/Time Labs Ordered Labs to be done on [date and time ordered]: 07/19/23 @ 1830
[2023-07-18 08:48] LABS: Reflex Lactate? Y
[2023-07-18 08:58] LABS: Magnesium 1.8 mg/dL (1.6-2.6)
[2023-07-18] MEDS: 0.9% Saline Lock 10 ML Syringe IV ×3 (09:29→18:45)
[2023-07-18] MEDS: Pantoprazole Sodium 40 MG in 0.9% Normal Saline (100mL MB+) 100 ML 330 MG IV (09:32)
[2023-07-18] MEDS: 0.9% Normal Saline (250mL Bag) 250 ML 15 ML IV (09:33)
[2023-07-18] MEDS: Atorvastatin Calcium 40 MG Tablet GT (09:35)
[2023-07-18] MEDS: Clopidogrel Bisulfate 75 MG Tablet GT (09:35)
[2023-07-18] MEDS: dexMEDEtomidine 400 MCG in 0.9% Normal Saline (100mL Bag) 96 ML 12.7 MCG CONT INF (09:40)
[2023-07-18] MEDS: Acetaminophen 650 MG/20 ML UDC GT ×3 (09:45→22:19)
[2023-07-18] MEDS: Meropenem 1 GM in 0.9% Normal Saline (100mL MB+) 100 ML IV ×3 (09:47→21:13)
[2023-07-18] MEDS: Aspirin 81 MG TAB.CHEW GT (10:54)
[2023-07-18 11:07] LABS: Partial Thromboplast Time 51.3 Seconds (24.1-36.2)
[2023-07-18 11:12] LABS: Troponin-I HS 6731 pg/mL (3.0-54.0)
[2023-07-18] MEDS: Norepinephrine 8 MG in 0.9% Normal Saline (250mL Bag) 242 ML 9.4 MG CONT INF (11:24)
[2023-07-18] MEDS: fentaNYL drip 100 ML 12.5 MCG CONT INF (13:30)
--- NOTE | 2023-07-18 13:30 | PCM.OP.PRO ---
Procedure Report Date of Procedure: 07/18/23 Assessment & Plan Assessment/Plan (1) Sepsis: QUALIFIERS: Sepsis type: sepsis due to unspecified organism Sepsis acute organ dysfunction status: with acute organ dysfunction Severe sepsis acute organ dysfunction type: acute respiratory failure Acute respiratory failure type: with hypoxia Severe sepsis shock status: without septic shock Qualified Code(s): A41.9 - Sepsis, unspecified organism; R65.20 - Severe sepsis without septic shock; J96.01 - Acute respiratory failure with hypoxia (2) Pneumonia: QUALIFIERS: Pneumonia type: due to unspecified organism Laterality: bilateral Lung location: lower lobe of lung Qualified Code(s): J18.9 - Pneumonia, unspecified organism Procedures Radiology Radiology Access Procedures: PICC Procedure Time Out Time Out Informed consent given: Yes Consent signed: Yes Time out checklist: patient, procedure, site marked/identified, positioning of patient, supplies available, allergies confirmed and team agrees on procedure Time out verified: Yes Time out date: 07/18/23 Time out time: 12:00 PICC Line Consent Screening tool completed:: Yes Consent obtained:: Yes Consent given by (patient or responsible constitution party):: Line successful (if no, document why in comments):: Yes Insertion Reason for Insertion: Poor Venous Access Date of Insertion: 07/18/23 Ok to use: Yes Type of PICC inserted: Dual Power PICC PICC Lot #: [id number] PICC Reference #: [id number] Microintroducer Used: Yes (in kit) Ultrasound/Equipment Used: Probe Cover Kit Trimmed Length (cm): 47 Insertion Length (cm): 42 Exposed Length (cm): 5 Tip Placement: SVC (Superior Vena Cava) Placement Confirmation: 3CG Insertion Vein: Right Basilic Insertion Attempts: 1 Local Anesthesia Used: Lidocaine 1% (in kit) Dressing Applied: Statlock and Tegaderm CHG Arm Measurement above site (in cm): 37 Patient Tolerated Procedure: Well Threading Difficulties: No Comments Comment: Patient identity was verified with two patient identifiers. Informed consent was obtained and time-out was completed. Hands were sanitized. The patient was positioned supine with right arm at 90 degrees. The patient's upper arm vasculature was assessed using ultrasound, and the right basilic vein was externally marked. An external measurement was obtained of 47 cm. External leads were applied to the patient's right upper chest and laterally and inferior of the umbilicus on the mid axillary line. Cap, mask, and prep gloves were donned. The underdrape was placed under the patient's arm. The site was prepped with chlorhexidine, and tourniquet was loosely applied. Prep gloves were discarded, and hands were sanitized. The sterile kit was opened with additional supplies dropped in. Sterile gown and gloves were donned, and the patient was draped. The sterile kit was assembled with all needle, introducer, connector, and catheter flushed with sterile normal saline. The marked site of insertion was anesthetized with 1% lidocaine. Patient tolerated well. The right basilic vein was then accessed using ultrasound guidance and guidewire was inserted to safety barbara. The tourniquet was released. The access needle was removed while securing the guidewire in place. The site was again anesthetized with 1% lidocaine, prior to insertion of introducer sheath and dilator. Patient tolerated well. The catheter was trimmed to a length of 47 cm. Using 3C guidance, the catheter was then inserted through the introducer sheath, slowly. There was no resistance on insertion. Maximal p-wave, without deflection, was obtained at an insertion length of 42 cm, leaving 5 cm external. The introducer sheath was retracted and peeled away, incrementally, while keeping the catheter secured. The stylet was removed. A flushed needleless connector was attached to both ports. Blood return was verified and both ports were flushed with sterile normal saline in a pulsatile fashion. Total sterile flushes used for the insertion was 6 10 ml syringes. Finally, the insertion site was cleaned with chlorhexidine, and the catheter was secured using a StatLock. The site was covered with a Tegaderm CHG Dressing. Baseline arm circumference was obtained at the insertion site and measured 37 cm. The primary nurse, Talisha, and family are aware PICC line insertion is complete and ready for use.
--- NOTE | 2023-07-18 13:58 | CASEMGMT ---
RN CM Discharge Planning Assessment: Noted pt to be intubated on ventilator. This RN CM met with pt's spouse, 2 daughters and TJ in waiting room. Introduced RN CM role. Pt's family expressed understanding and agreeable to participating in assessment. Care providers, demographics and pharmacy verified. Admitting dx: Vfib/cardiac arrest GIOVANNY stata: 1 PCP: [facility] Specialists: none Insurance: [employer] Pharmacy Benefit: yes Preferred pharmacy: [facility] Living Will/HPOA: does not have a living will. spouse states he is pt's HPOA LNOK: spouse Ed, two daughters Living Situation: Pt lives with her spouse in a single story home with 1-2 steps to enter without handrail. 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 Transportation: pt drives at baseline DME/HHC/SNF: Pt has not required the use of DME and family denies previous skilled services. Plan: TBD Will continue to monitor pt's clinical progress for further determination of discharge disposition. Leticia Lazaro, RN ACM
--- NOTE | 2023-07-18 14:31 | CON.PCM.CA_ITS ---
<Statement entered by Ron Roque MD - 07/19/23 12:44> Pt seen & evaluated w/MARY. I personally interviewed & exam the pt. I was involved in all aspects of pt's orders, interpretation of results & treatment Assessment & Plan Assessment/Plan (1) Cardiac arrest with ventricular fibrillation:
--- NOTE | 2023-07-18 14:31 | PCM.CONS.C ---
Assessment & Plan Assessment/Plan (1) Cardiac arrest with ventricular fibrillation: (2) Elevated troponin: (3) Cardiomyopathy: (4) Sepsis: QUALIFIERS: Acute respiratory failure type: with hypoxia Sepsis acute organ dysfunction status: with acute organ dysfunction Sepsis type: sepsis due to unspecified organism Severe sepsis acute organ dysfunction type: acute respiratory failure Severe sepsis shock status: without septic shock Qualified Code(s): A41.9 - Sepsis, unspecified organism; R65.20 - Severe sepsis without septic shock; J96.01 - Acute respiratory failure with hypoxia PLAN: Plan With elevated troponins, decrease in LV function. Pt likely has CAD. However at this time can not pursue heart cath with her sepsis. For now will medically manage. She is currently needing Bp support with levophed. This is being managed by the block cuber. Recommend continuing her Plavix, Heparin, and ASA Once her infection improve will consider a heart cath, however this may need to be done on an OP basis. Based on her VS will try to maximize her cardiac medications. HPI Consult Data Date of Consult: 07/18/23 HPI Narrative HPI Narrative: JASON RAUSCH, is a 72 F who presented to [facility] ER via EMS for chest pain and unresponsiveness. EKG via EMS demonstrated ST depressions in V2,V3,V4. Pt was able to walk to squad d/t [place]. Once the pt walked in the squad she became unresponsive. Pt was noted to be in Vfib. She did recieve 1 shock at 200J. She did have a pulse return with this. Pt was intubated upon arrival. Family had noted that she recently was having chest pain but also notes that she has had a cough and URI for the last few day. She did have one episode of emesis prior to squad arrival. CXR did demonstrate bilateral pneumonia. WBC were elevated at 19.3. Lactic acid elevated at 5.4. Troponins trended 134/1333/6731. She was admitted to ICU with cardiac arrest with Vfib, acute respirator failure with sepsis. Pt is currently intubated. She did have an echo which demonstrated an EF of 25%. Pt does have a hx of hypertension and HL. [facility] Medical History (Updated 07/18/23 @ 14:32 by Judith MCELROY, PA) Cardiomyopathy Heart murmur Hypertension Medical History unable to obtain Home Medications amlodipine 5 mg tablet 5 mg PO DAILY 07/18/23 [History Last Taken Unknown] atorvastatin 40 mg tablet 40 mg PO DAILY 07/18/23 [History Last Taken Unknown] ezetimibe 10 mg tablet 10 mg PO QHS 07/18/23 [History Last Taken Unknown] lisinopril 20 mg-hydrochlorothiazide 12.5 mg tablet 1 tab PO DAILY 07/18/23 [History Last Taken Unknown] sertraline 100 mg tablet 100 mg PO DAILY 07/18/23 [History Last Taken Unknown] Allergy/AdvReac Type Severity Reaction Status Date / Time Penicillins Allergy PT UNABLE Verified 07/18/23 04:43 TO RESPOND-NEEDS F/U Surgical History unable to obtain Social History Smoking Status: Never smoker ROS Review of Systems ROS Unobtainable: due to endotracheal tube Physical Exam Const Constitutional Narrative: Intubated, sedated and mechanically ventilated. HEENT normocephalic and head/scalp atraumatic Mouth: endotracheal tube in place and OG tube in place Eyes PERRL and EOMs intact bilaterally Neck supple General: trachea midline Chest inspection of chest normal Resp Auscultation: diminished lung sounds; Negative for rales, rhonchi or wheezes Cardio regular rate and regular rhythm GI normal to inspection, nondistended, normoactive bowel sounds Extremity no clubbing, cyanosis or edema Skin no rashes or lesions noted Neuro Sensorium / Orientation: sedated on vent Risk Stratification Risk Stratification Applicable: Yes Age >/= 65: Yes >/= 3 CAD Risk Factors (HTN, HLD, DM, family hx of CAD, or current smoker): Yes Aspirin Use in the Past 7 Days: No Severe Angina (>/= episodes in 24 hours): Yes EKG ST Changes >/= 0.5mm: No Positive Cardiac Marker: Yes HOLLI Risk Stratification Score: 4 HOLLI % Risk: 20% Risk Charges/Coding Visit Charges Office Visits / Consults: 25601 IP Consult L4 Objective Data Vital Signs: Vital Signs Temp Pulse Resp BP Pulse Ox O2 Del Method O2 Flow Rate 103.0 F H 111 H 15 127/86 H 93 Mechanical Ventilator 15 07/18/23 14:00 07/18/23 14:00 07/18/23 14:00 07/18/23 14:15 07/18/23 14:00 07/18/23 14:00 07/18/23 03:58 FiO2 45 07/18/23 14:00 Oxygen Flow Rate (L/min) 15 Oxygen Delivery Method Mechanical Ventilator Weight: 224 lb 3.362 oz Body Mass Index (BMI) 35.1 Intake & Output: Intake and Output for Last 24 Hours 07/16/23 07/17/23 07/18/23 23:59 23:59 23:59 Intake Total 6164.20 / 6164.20 Output Total 230 / 230 Balance 5934.20 / 5934.20 Lab / Micro Data 07/18/23 04:10 07/18/23 04:10 Labs: Laboratory Results - last 24 hr 07/18/23 04:10: WBC 19.3 H, RBC 4.94, Hgb 15.7 H, Hct 47.3 H, MCV 95.7, MCH 31.8, MCHC 33.2, RDW Std Deviation 44.6 H, RDW Coeff of Ronnell 12.6, Plt Count 282, MPV 10.6, Immature Gran % (Auto) 0.600, Neut % (Auto) 66.3, Lymph % (Auto) 27.3, [place] % (Auto) 4.6, Eos % (Auto) 0.6, Baso % (Auto) 0.6, Absolute Neuts (auto) 12.8 H, Absolute Lymphs (auto) 5.27 H, Nucleated RBC % 0, Differential Comment SCANNED, PT 13.2, INR 1.0, APTT 29.0, D-Dimer Quant (PE/DVT) 0.43, Sodium 140, Potassium 3.8, Chloride 103, Carbon Dioxide 21.0, Anion Gap 16 H, BUN 10, Creatinine 0.83, Estim Creat Clear Calc 56.75, Est GFR (MDRD) Af Amer 87, Est GFR (MDRD) Non-Af 72, BUN/Creatinine Ratio 12.0, Glucose 220 H, Calcium 8.8, Total Bilirubin 0.40, Direct Bilirubin 0.12, AST 45 H, ALT 46, Alkaline Phosphatase 100, Total Creatine Kinase 72, Troponin I High Sens 164 H*, B-Natriuretic Peptide 130.6 H, Total Protein 8.3 H, Albumin 3.8, Globulin 4.5 H, Triglycerides 202 H, Lipase 39, Ethyl Alcohol < 3.0 07/18/23 04:40: Lactic Acid 5.4 H* 07/18/23 05:00: Urine Opiates Screen NEGATIVE, Urine Methadone Screen NEGATIVE, Ur Barbiturates Screen NEGATIVE, Ur Phencyclidine Scrn NEGATIVE, Ur Amphetamines Screen NEGATIVE, MDMA (Ecstasy) Screen NEGATIVE, U Benzodiazepines Scrn NEGATIVE, Urine Cocaine Screen NEGATIVE, U Cannabinoids Screen NEGATIVE, Ur Drug Screen Comment 07/18/23 06:30: Magnesium 1.8, Troponin I High Sens 1333 H* 07/18/23 09:25: Lactic Acid 2.0 07/18/23 10:30: APTT 51.3 H, Troponin I High Sens 6731 H* Micro: Microbiology 07/18/23 05:00 Urine Catheter - Catheter Legionella Antigen - Final 07/18/23 05:00 Urine Catheter - Catheter Streptococcus pneumoniae Antigen (M - Final ABG Data ABG results: ABG 07/18/23 07/18/23 05:01 07:44 Specimen Type ART ART Sample Site R Radial L Radial pH 7.28 L 7.34 L Bicarbonate Actual 23.4 25.7 Total CO2 25 27 Base Excess -3 L 0 O2 Saturation 93 L 96 O2 % 100.0 80.0 ABG pCO2 50.1 H 47.2 H ABG pO2 76 90 Catalino Test Positive Respiration Rate 14 14 O2 Delivery Device Adult Vent Not entered Vent Mode AC AC Tidal Volume 450.0 450.0 POC PEEP 8 8 Cardiology Labs/Tests 07/18/23 04:10: WBC 19.3 H, RBC 4.94, Hgb 15.7 H, Hct 47.3 H, MCV 95.7, MCH 31.8, MCHC 33.2, Plt Count 282, MPV 10.6, Immature Gran % (Auto) 0.600, Neut % (Auto) 66.3, Lymph % (Auto) 27.3, [place] % (Auto) 4.6, Eos % (Auto) 0.6, Baso % (Auto) 0.6, Absolute Neuts (auto) 12.8 H, Nucleated RBC % 0, PT 13.2, INR 1.0, APTT 29.0, D-Dimer Quant (PE/DVT) 0.43, Sodium 140, Potassium 3.8, Chloride 103, Carbon Dioxide 21.0, Anion Gap 16 H, BUN 10, Creatinine 0.83, Est GFR (MDRD) Af Amer 87, Est GFR (MDRD) Non-Af 72, BUN/Creatinine Ratio 12.0, Glucose 220 H, Calcium 8.8, Total Bilirubin 0.40, Direct Bilirubin 0.12, B-Natriuretic Peptide 130.6 H, Triglycerides 202 H 07/18/23 04:40: Lactic Acid 5.4 H* 07/18/23 05:01: pH 7.28 L, Bicarbonate Actual 23.4, Base Excess -3 L, O2 Saturation 93 L, ABG pCO2 50.1 H, ABG pO2 76, Catalino Test Positive 07/18/23 06:30: Magnesium 1.8 07/18/23 07:44: pH 7.34 L, Bicarbonate Actual 25.7, Base Excess 0, O2 Saturation 96, ABG pCO2 47.2 H, ABG pO2 90 07/18/23 09:25: Lactic Acid 2.0 07/18/23 10:30: APTT 51.3 H Radiography Diagnostic Testing: Radiology Impression Chest X-Ray 07/18/23 04:20 IMPRESSION: 1. Patchy opacity left lung base may be due to atelectasis and/or pneumonia. 2. Opacity right lung apex may be due to atelectasis, pneumonia, or a mass. 3. Endotracheal tube tip is 2.1 cm above the jinny. 4. NG tube is in the stomach. Electronically Signed: Marquise Farrell MD at 4:39 EST , Echocardiogram 07/18/23 06:16 Interpretation Summary The estimated ejection fraction is 25 %. Severe segmental systolic dysfunction (see wall motion). Stage 2 diastolic dysfunction. Mild aortic stenosis. Right ventricular systolic pressure estimated to be 53 mmHg. Contrast echo used/Definity. No previous echo to compare The study was technically difficult. Contrast injection was performed. Ordering Physician: Canelo Pierce Referring Physician: LALITHA CERVANTES Performed By: Bernadette Wynn RDCS
[2023-07-18] MEDS: dexMEDEtomidine 400 MCG in 0.9% Normal Saline (100mL Bag) 96 ML 15.3 MCG CONT INF ×2 (16:00→22:20)
[2023-07-18 17:44] LABS: Partial Thromboplast Time 64.3 Seconds (24.1-36.2)
[2023-07-18] MEDS: Vancomycin IV 1,000 MG/200 ML BAG 200 MG IV (18:45)
[2023-07-18] MEDS: fentaNYL drip 100 ML 15 MCG CONT INF (20:14)
[2023-07-18] MEDS: Chlorhexidine 15 ML PO (20:16)
[2023-07-18] MEDS: Ezetimibe 10 MG Tablet GT (20:16)
[2023-07-18 23:38] LABS: Partial Thromboplast Time 88.1 Seconds (24.1-36.2)
[2023-07-19] VITALS (30 sets, daily range): BP systolic 80–131; BP diastolic 53–81; PULSE 52–128; RESP 12–31; TEMP 37.2–38.8; O2SAT 87–98; BMI 36.6
--- NOTE | 2023-07-19 02:18 | EKG12_ITS ---
Test Reason : Blood Pressure : / mmHG Vent. Rate : 054 BPM Atrial Rate : 054 BPM P-R Int : 146 ms QRS Dur : 086 ms QT Int : 520 ms P-R-T Axes : 007 028 183 degrees QTc Int : 493 ms Sinus bradycardia with Fusion complexes and Premature atrial complexes with ventricular escape comple xes Low voltage QRS Septal infarct , age undetermined ST & T wave abnormality, consider anterolateral ischemia Abnormal ECG When compared with ECG of 18-JUL-2023 11:46, MANUAL COMPARISON REQUIRED, DATA IS UNCONFIRMED Confirmed by YOSEF MCGILL, BRENDA ([id number]), map editor RAÚL BARFIELD ([id number]) on 07/20/2023 11:23:13 AM Referred By: Confirmed By:BRENDA NAVAS MD
[2023-07-19] MEDS: fentaNYL drip 100 ML 15 MCG CONT INF (02:54)
[2023-07-19 03:32] LABS: Mean Corp Hgb Conc 32.5 g/dL (32-36); Mean Corpuscular Hgb 32.3 pg (27.0-32.0); Mean Corpuscular Volume 99.3 fL (81-99); Mean Platelet Vol. 10.7 fl (6.2-12.0); Platelet Count 148 K/mm3 (150-450); RBC Distribution Width CV 13.1 % (11.6-14.6); RBC Distribution Width SD 47.5 fl (35.1-43.9); Red Blood Count 4.03 M/mm3 (4.2-5.4); White Blood Count 10.8 K/mm3 (4.4-11.0)
[2023-07-19 04:11] LABS: ALB/GLOB Ratio 0.7 RATIO (0.9-2.4); AST(SGOT) 132 U/L (15-37); Alanine Aminotransfer ALT/SGPT 38 U/L (13-56); Albumin, Serum 2.5 g/dL (3.2-5.0); Alkaline Phosphatase 63 U/L (45-117); Anion Gap 6 (5-15); BUN 12 mg/dL (7-18); BUN/Creat Ratio 19.7 RATIO (10-20); Chloride 106 mmol/L (98-107); Cholesterol 114 mg/dL (200); Creatinine, Serum 0.61 mg/dL (0.55-1.02); EST Glomerular Filtration Rate 103 mL/min (>60); Est Glom Filt Rate - Afr Amer 125 mL/min (>60); Estimated Creatinine Clearance 50.91 ml/min; Globulin 3.8 g/dL (2.2-4.2); Glucose 165 mg/dL (74-106); High Density Lipoprotein 51 mg/dL; Potassium 3.8 mmol/L (3.5-5.1); Protein, Total 6.3 g/dL (6.4-8.2); Sodium Level 138 mmol/L (136-145); Thyroid Stim Hormone (TSH) 2.67 uIU/mL (0.358-3.74); Triglycerides 203 mg/dL; Very Low Density Lipoprotein 41 mg/dL (5-40)
[2023-07-19] MEDS: HEPARIN/D5w 25,000 UNITS 25,000 UNITS/250 ML IV.SOLN. 10 UNITS CONT INF (04:59)
[2023-07-19] MEDS: Meropenem 1 GM in 0.9% Normal Saline (100mL MB+) 100 ML IV ×2 (05:00→12:53)
[2023-07-19] MEDS: CHLORHEXIDINE GLUC 2% CLOTH 1 EACH TOWELETTE TOPICAL (05:00)
[2023-07-19] MEDS: 0.9% Saline Lock 10 ML Syringe IV ×5 (05:00→13:29)
[2023-07-19] MEDS: dexMEDEtomidine 400 MCG in 0.9% Normal Saline (100mL Bag) 96 ML 15.3 MCG CONT INF (05:00)
--- NOTE | 2023-07-19 05:10 | NURSING ---
Fentanyl gtt turned down to 50 for awakening trial. Paused at 0510 d/t apnea at beginning of breathing trial.
[2023-07-19 06:07] LABS: Allen Test Positive; Base Excess 0 mmol/L (-2 to +2); Bicarbonate 26.2 mmol/L (22-26); Blood Gas Specimen Type ART; Mode CPAP/PS; O2 Delivery Device AeroMask; PEEP 5; PO2 68 mmHG (75-100); SITE R Radial; SO2 91 % (95-99); Total Carbon Dioxide 28 mmol/L; pCO2 50.6 mmHg (35-45); pH 7.32 (7.35-7.45)
[2023-07-19] MEDS: Vancomycin IV 1,000 MG/200 ML BAG 200 MG IV (06:45)
[2023-07-19 07:16] LABS: Partial Thromboplast Time 73.6 Seconds (24.1-36.2)
--- NOTE | 2023-07-19 07:26 | PCM.PN.INT ---
Assessment & Plan Assessment/Plan (1) Cardiac arrest with ventricular fibrillation: (2) Sepsis: QUALIFIERS: Acute respiratory failure type: with hypoxia Sepsis acute organ dysfunction status: with acute organ dysfunction Sepsis type: sepsis due to unspecified organism Severe sepsis acute organ dysfunction type: acute respiratory failure Severe sepsis shock status: without septic shock Qualified Code(s): A41.9 - Sepsis, unspecified organism; R65.20 - Severe sepsis without septic shock; J96.01 - Acute respiratory failure with hypoxia PLAN: Plan RECOMMENDATIONS: 1. Okay to proceed with extubation 2. Continue empiric antimicrobials, pending infectious workup. 3. Bedside swallow evaluation before any p.o. 4. Defer timing of intervention to cardiology 5. Continue heparin infusion for now. 6. Wean oxygen as tolerated IMPRESSIONS: 1. Acute combined respiratory failure in the setting of V-fib cardiac arrest Unclear precipitating etiology for ventricular fibrillation, but echocardiogram is suggestive of possible coronary artery disease. However, the patient was urgently intubated in the emergency department. Patient able to be extubated today following trial. Wean oxygen as tolerated to maintain saturations at or above 90%. Over concerns for underlying aspiration pneumonia, the patient will be continued on broad-spectrum antimicrobials, pending infectious workup. Cardiology has been consulted 2. Sepsis versus cardiogenic shock The patient presented to the hospital with sepsis due to probable pneumonia with acute sepsis related organ dysfunction as evidenced by lactic acidemia and acute respiratory failure, requiring invasive mechanical ventilatory support. Patient did have high fevers overnight, but was on pressors only transiently. Clinical suspicion is an element of cardiogenic shock secondary to V-fib arrest as an etiology. Continue antibiotics pending cultures. 3. Troponin elevation/suspected NSTEMI Cardiology consulted and is suggesting conservative therapy. Continue heparin infusion for now. 4. History of hypertension/hyperlipidemia/obesity/depression Complicates care, management, recovery and prognosis. Continue supportive measures as noted above. Addendum 1:07 PM: Patient with progressive decline over the last 2 hours. Patient with hypoxia and tachypnea. Patient has gone up on FiO2 requirements. Attempts at using Haldol, Lasix and supplemental oxygen have been unsuccessful. Patient put out approximately 200 cc following the 40 mg of Lasix. Patient evaluated at the bedside and found to be in extreme distress. Patient was initiated on Precedex therapy to help facilitate BiPAP. Extensive family discussion about the goals of therapy. As of right now patient will be reintubated if necessary. Discussed with the family that the patient has had on multiple occasions that she does not want to be reintubated. Also discussed with cardiology. If patient needs to be reintubated, likely is in cardiogenic shock and will need to go to tertiary center for possible Impella and investigation of cardiovascular disease. Patient currently is marginally improved on BiPAP therapy. 80 of Lasix has been ordered. TIME: 80 minutes of critical care time, independent of procedures, was spent addressing the patient's acute combined respiratory failure, V-fib cardiac arrest, cardiogenic shock, NSTEMI, review of all data and collaboration with the care team. Subjective Subjective Patient did okay overnight. Patient able to be taken off of Levophed and was placed on a spontaneous breathing trial this morning. Patient tolerated this well and will be able to be extubated. Patient did have significant fever overnight. Patient was following commands appropriately. Patient was concerned that she still had her dentures in. Objective Data Objective Data Vital Signs: Vital Signs Temp Pulse Resp BP Pulse Ox O2 Del Method O2 Flow Rate 38.1 C H 65 27 H 110/63 97 Nasal Cannula 4 07/19/23 07:00 07/19/23 07:00 07/19/23 07:00 07/19/23 07:00 07/19/23 07:00 07/19/23 07:00 07/19/23 07:00 FiO2 40 07/19/23 06:00 Oxygen Flow Rate (L/min) 4 Oxygen Delivery Method Nasal Cannula Weight: 106 kg Body Mass Index (BMI) 36.6 Intake & Output: Intake and Output for Last 24 Hours 07/17/23 07/18/23 07/19/23 23:59 23:59 23:59 Intake Total 7159.10 / 7289.40 606.91 / 606.91 Output Total 410 / 455 145 / 145 Balance 6749.10 / 6834.40 461.91 / 461.91 Lab / Micro Data Attestation: I reviewed the patient's lab results. 07/19/23 03:10 07/19/23 03:10 Labs: Laboratory Results - last 24 hr 07/18/23 06:30: Magnesium 1.8 07/18/23 09:25: Lactic Acid 2.0 07/18/23 10:30: APTT 51.3 H, Troponin I High Sens 6731 H* 07/18/23 17:15: APTT 64.3 H 07/18/23 23:13: APTT 88.1 H 07/19/23 03:10: WBC 10.8, RBC 4.03 L, Hgb 13.0, Hct 40.0, MCV 99.3 H, MCH 32.3 H, MCHC 32.5, RDW Std Deviation 47.5 H, RDW Coeff of Ronnell 13.1, Plt Count 148 L, MPV 10.7, Sodium 138, Potassium 3.8, Chloride 106, Carbon Dioxide 26.0, Anion Gap 6, BUN 12, Creatinine 0.61, Estim Creat Clear Calc 50.91, Est GFR (MDRD) Af Amer 125, Est GFR (MDRD) Non-Af 103, BUN/Creatinine Ratio 19.7, Glucose 165 H, Calcium 8.0 L, Total Bilirubin 0.40, AST 132 H, ALT 38, Alkaline Phosphatase 63, Total Protein 6.3 L, Albumin 2.5 L, Globulin 3.8, Albumin/Globulin Ratio 0.7 L, Triglycerides 203 H, Cholesterol 114, LDL Cholesterol 22, VLDL Cholesterol 41 H, HDL Cholesterol 51, TSH 2.67 07/19/23 06:50: APTT 73.6 H Micro: Microbiology 07/18/23 07:17 Mucosa - Nasopharyngeal - Final 07/18/23 04:55 Sputum, Induced/Lukens Gram Stain - Final 07/18/23 05:00 Urine Catheter - Catheter Legionella Antigen - Final 07/18/23 05:00 Urine Catheter - Catheter Streptococcus pneumoniae Antigen (M - Final ABG Data ABG results: ABG 07/18/23 07/19/23 07:44 05:59 Specimen Type ART ART Sample Site L Radial R Radial pH 7.34 L 7.32 L Bicarbonate Actual 25.7 26.2 H Total CO2 27 28 Base Excess 0 0 O2 Saturation 96 91 L O2 % 80.0 40.0 ABG pCO2 47.2 H 50.6 H ABG pO2 90 68 L Catalino Test Positive Respiration Rate 14 O2 Delivery Device Not entered AeroMask Vent Mode AC CPAP/PS Tidal Volume 450.0 POC PEEP 8 5 Radiography Diagnostic Testing: Radiology Impression Echocardiogram 07/18/23 06:16 Interpretation Summary The estimated ejection fraction is 25 %. Severe segmental systolic dysfunction (see wall motion). Stage 2 diastolic dysfunction. Mild aortic stenosis. Right ventricular systolic pressure estimated to be 53 mmHg. Contrast echo used/Definity. No previous echo to compare The study was technically difficult. Contrast injection was performed. Ordering Physician: Canelo Pierce Referring Physician: LALITHA CERVANTES Performed By: Bernadette Wynn RDCS Rhythm Strip Rhythm Strip: Sinus Rhythm Rate: 54 Ectopy: - (EKG/telemetry with junctional rhythm intermittently) Physical Exam Const Constitutional Narrative: Intubated, sedated and mechanically ventilated. No ventilator dyssynchrony. Obese. HEENT normocephalic and head/scalp atraumatic HEENT Narrative: No upper dentures noted. Mouth: endotracheal tube in place and OG tube in place Eyes PERRL and EOMs intact bilaterally Neck supple General: trachea midline Chest inspection of chest normal Resp Auscultation: diminished lung sounds; Negative for rales, rhonchi or wheezes Cardio regular rhythm, S1 normal heart sound, S2 normal heart sound, no rub and no gallops Rate: bradycardia GI normal to inspection, nondistended, normoactive bowel sounds Extremity no clubbing, cyanosis or edema Skin no rashes or lesions noted Neuro CN's II-XII intact bilaterally and moves all extremities Psych cooperative and affect normal Charges/Coding Procedures Hospitalists Procedures: 74610 Critical Care 1st Hr Multi Select Codes Hospitalists' Procedures Procedures: 47905 Critical Care Addl 30 Min
[2023-07-19] MEDS: Clopidogrel Bisulfate 75 MG Tablet PO (09:28)
[2023-07-19] MEDS: Pantoprazole Sodium 40 MG in 0.9% Normal Saline (100mL MB+) 100 ML 330 MG IV (09:28)
[2023-07-19] MEDS: Atorvastatin Calcium 40 MG Tablet PO (09:28)
[2023-07-19] MEDS: Aspirin 81 MG TAB.CHEW PO (09:29)
[2023-07-19] MEDS: Acetaminophen 650 MG/20 ML UDC PO (09:37)
--- NOTE | 2023-07-19 10:02 | CASEMGMT ---
Insurance review for hospitals In-network with [employer] insurance if transfer is recommended is as follows:. [facility], [place], [facility], [facility], [facility], [facility]), [facility], [facility], and . Madelyn Vega, Discharge Planning Asst.
[2023-07-19] MEDS: Furosemide 40 MG/4 ML Vial IV (10:25)
[2023-07-19] MEDS: Haloperidol Lactate 5 MG/ML Vial 3 MG IV (10:52)
[2023-07-19] MEDS: Sertraline 100 MG Tablet PO (10:52)
--- NOTE | 2023-07-19 12:10 | RAD_ITS ---
STUDY: X-RAY CHEST REASON FOR EXAM: Female, 72 years old. shortness of breath TECHNIQUE: Single AP portable view of the chest. COMPARISON: July 18, 2023 FINDINGS: 1. Interval removal of the endotracheal tube and feeding tube 2. Interval worsening of patchy consolidation and interstitial edema throughout both lungs and in the perihilar regions, most pronounced in the right infrahilar aspect of the right lung. 3. Interval development of small bilateral pleural effusions 4. No change in mild cardiomegaly 5. No pneumothorax is present 6. A new right-sided PICC line is present with the tip terminating above the right atrium 7. Stable mediastinum and osseous structures. There is no demonstrated abnormality of the visualized soft tissue structures of the upper abdomen. RAD/Chest 1 View (Portable) IMPRESSION: * Interval worsening of patchy consolidation and interstitial edema throughout both lungs and in the perihilar regions, most pronounced in the right infrahilar aspect of the right lung. * Interval development of small bilateral pleural effusions Electronically Signed: Serafin Garcia MD at 13:02 EST ,
[2023-07-19] MEDS: dexMEDEtomidine 400 MCG in 0.9% Normal Saline (100mL Bag) 96 ML 13.3 MCG CONT INF (12:30)
[2023-07-19] MEDS: Furosemide 100 MG/10 ML Vial 80 MG IV (12:45)
[2023-07-19 13:24] LABS: Partial Thromboplast Time 42.3 Seconds (24.1-36.2)
--- NOTE | 2023-07-19 13:42 | PN.CARD_ITS ---
<Statement entered by Ron Roque MD - 07/19/23 16:00> Pt seen & evaluated w/MARY. I personally interviewed & exam the pt. I was involved in all aspects of pt's orders, interpretation of results & treatment Subjective Subjective Pt seen and examined today. She was extubated this morning. She currently does not have any CP. Pt was noted to have short junction runs last night Objective Data Vital Signs: Vital Signs Temp Pulse Resp BP Pulse Ox O2 Del Method O2 Flow Rate 101 F H 83 28 H 80/63 L 92 Bi-pap 60 07/19/23 13:00 07/19/23 13:00 07/19/23 13:00 07/19/23 13:00 07/19/23 13:00 07/19/23 13:00 07/19/23 12:00 FiO2 100 07/19/23 13:00 Oxygen Flow Rate (L/min) 60 Oxygen Delivery Method Bi-pap Weight: 233 lb 11.04 oz Body Mass Index (BMI) 36.6 Intake & Output: Intake and Output for Last 24 Hours 07/17/23 07/18/23 07/19/23 23:59 23:59 23:59 Intake Total 7159.10 / 7289.40 1427.12 / 1427.12 Output Total 410 / 455 495 / 495 Balance 6749.10 / 6834.40 932.12 / 932.12 Lab / Micro Data 07/19/23 03:10 07/19/23 03:10 Labs: Laboratory Results - last 24 hr 07/18/23 17:15: APTT 64.3 H 07/18/23 23:13: APTT 88.1 H 07/19/23 03:10: WBC 10.8, RBC 4.03 L, Hgb 13.0, Hct 40.0, MCV 99.3 H, MCH 32.3 H , MCHC 32.5, RDW Std Deviation 47.5 H, RDW Coeff of Ronnell 13.1, Plt Count 148 L, MPV 10.7, Sodium 138, Potassium 3.8, Chloride 106, Carbon Dioxide 26.0, Anion Gap 6, BUN 12, Creatinine 0.61, Estim Creat Clear Calc 50.91, Est GFR (MDRD) Af Amer 125, Est GFR (MDRD) Non-Af 103, BUN/Creatinine Ratio 19.7, Glucose 165 H, Calcium 8.0 L, Total Bilirubin 0.40, AST 132 H, ALT 38, Alkaline Phosphatase 63, Total Protein 6.3 L, Albumin 2.5 L, Globulin 3.8, Albumin/Globulin Ratio 0.7 L, Triglycerides 203 H, Cholesterol 114, LDL Cholesterol 22, VLDL Cholesterol 41 H, HDL Cholesterol 51, TSH 2.67 07/19/23 06:50: APTT 73.6 H 07/19/23 13:05: APTT 42.3 H Micro: Microbiology 07/18/23 04:55 Sputum, Induced/Lukens Gram Stain - Final 07/18/23 04:55 Sputum, Induced/Lukens Respiratory Culture - Preliminary 07/18/23 07:17 Mucosa - Nasopharyngeal - Final ABG Data ABG results: ABG 07/19/23 05:59 Specimen Type ART Sample Site R Radial pH 7.32 L Bicarbonate Actual 26.2 H Total CO2 28 Base Excess 0 O2 Saturation 91 L O2 % 40.0 ABG pCO2 50.6 H ABG pO2 68 L Catalino Test Positive O2 Delivery Device AeroMask Vent Mode CPAP/PS POC PEEP 5 Rhythm Strip Rhythm Strip: Sinus Rhythm Rate: 54 Ectopy: - (EKG/telemetry with junctional rhythm intermittently) Cardiology Labs/Tests 07/18/23 17:15: APTT 64.3 H 07/18/23 23:13: APTT 88.1 H 07/19/23 03:10: WBC 10.8, RBC 4.03 L, Hgb 13.0, Hct 40.0, MCV 99.3 H, MCH 32.3 H , MCHC 32.5, Plt Count 148 L, MPV 10.7, Sodium 138, Potassium 3.8, Chloride 106, Carbon Dioxide 26.0, Anion Gap 6, BUN 12, Creatinine 0.61, Est GFR (MDRD) Af A anam 125, Est GFR (MDRD) Non-Af 103, BUN/Creatinine Ratio 19.7, Glucose 165 H, Calcium 8.0 L, Total Bilirubin 0.40, Triglycerides 203 H, Cholesterol 114, LDL Cholesterol 22, VLDL Cholesterol 41 H, HDL Cholesterol 51 07/19/23 05:59: pH 7.32 L, Bicarbonate Actual 26.2 H, Base Excess 0, O2 Saturation 91 L, ABG pCO2 50.6 H, ABG pO2 68 L, Catalino Test Positive 07/19/23 06:50: APTT 73.6 H 07/19/23 13:05: APTT 42.3 H Rhythm: Radiography Diagnostic Testing: Radiology Impression Chest X-Ray 07/19/23 12:10 IMPRESSION: * Interval worsening of patchy consolidation and interstitial edema throughout both lungs and in the perihilar regions, most pronounced in the right infrahilar aspect of the right lung. * Interval development of small bilateral pleural effusions Electronically Signed: Serafin Garcia MD at 13:02 EST Reading Location ID and State: [facility] / [place] , Service support , Physical Exam Const alert and oriented x3 HEENT normocephalic and head/scalp atraumatic Mouth: endotracheal tube in place and OG tube in place Eyes PERRL and EOMs intact bilaterally Neck supple General: trachea midline Chest inspection of chest normal Resp Auscultation: rhonchi and diminished lung sounds; Negative for rales or wheezes Cardio regular rate and regular rhythm GI normal to inspection, nondistended, normoactive bowel sounds Extremity no clubbing, cyanosis or edema Skin no rashes or lesions noted Neuro Sensorium / Orientation: sedated on vent Assessment & Plan Assessment/Plan (1) Cardiac arrest with ventricular fibrillation: (2) Elevated troponin: (3) Cardiomyopathy: (4) Sepsis: QUALIFIERS: Acute respiratory failure type: with hypoxia Sepsis acute organ dysfunction status: with acute organ dysfunction Sepsis type: sepsis due to unspecified organism Severe sepsis acute organ dysfunction type: acute respiratory failure Severe sepsis shock status: without septic shock Qualified Code(s): A41.9 - Sepsis, unspecified organism; R65.20 - Severe sepsis without septic shock; J96.01 - Acute respiratory failure with hypoxia PLAN: Plan * With elevated troponins, decrease in LV function. Pt likely has CAD. However at this time can not pursue heart cath with her sepsis. For now will medically manage. * after extubation, pts has become restless, hypoxic and tachypneic. She was given IV lasix with some urine output. She was then placed on a Bipap. With her change in condition there is concern for cardiogenic shock. If she continues to decline may need to transferred to a tertiary facility.
[2023-07-19 13:58] LABS: Troponin-I HS 8398 pg/mL (3.0-54.0)
[2023-07-19 14:22] LABS: Bedside Glucose 147 mg/dL (74-106)
--- NOTE | 2023-07-19 15:15 | PN.HOSP_ITS ---
Reason for Visit Reason for Visit: Diagnoses Sepsis, unspecified organism (07/18/23) Cardiomyopathy, unspecified (07/18/23) Cardiac arrest, cause unspecified (07/18/23) Ventricular fibrillation (07/18/23) Pneumonia, unspecified organism (07/18/23) Acute respiratory failure with hypoxia (07/18/23) Severe sepsis without septic shock (07/18/23) Other specified abnormal findings of blood chemistry (07/18/23) Subjective Subjective Patient was seen and examined today, she was extubated this morning but has been on BiPAP due to worsening respiratory distress, I talked at length with pulmonary medicine, additional Lasix was given to the patient. I had several long conversations with the patient's family, and the and the patient's family request that the patient be transferred to a tertiary facility in case she needs further intervention such as a bypass. I called [facility] and talked with them, they appear to be hopeful that the patient would have a bed either late today or early tomorrow. Also had a short conversation with cardiology here and I will let Dr. Roque know of the family's wishes and he was okay with this. Objective Data Objective Data Vital Signs: Vital Signs Temp Pulse Resp BP Pulse Ox O2 Del Method O2 Flow Rate 100.3 F H 94 25 H 84/58 L 95 Bi-pap 60 07/19/23 14:00 07/19/23 15:00 07/19/23 15:00 07/19/23 15:00 07/19/23 15:00 07/19/23 15:00 07/19/23 12:00 FiO2 100 07/19/23 15:00 Oxygen Flow Rate (L/min) 60 Oxygen Delivery Method Bi-pap Weight: 106 kg Body Mass Index (BMI) 36.6 Intake & Output: Intake and Output for Last 24 Hours 07/17/23 07/18/23 07/19/23 23:59 23:59 23:59 Intake Total 7159.10 / 7289.40 1466.24 / 1466.24 Output Total 410 / 455 495 / 495 Balance 6749.10 / 6834.40 971.24 / 971.24 Lab / Micro Data 07/19/23 03:10 07/19/23 03:10 Labs: Laboratory Results - last 24 hr 07/18/23 17:15: APTT 64.3 H 07/18/23 23:13: APTT 88.1 H 07/19/23 03:10: WBC 10.8, RBC 4.03 L, Hgb 13.0, Hct 40.0, MCV 99.3 H, MCH 32.3 H , MCHC 32.5, RDW Std Deviation 47.5 H, RDW Coeff of Ronnell 13.1, Plt Count 148 L, MPV 10.7, Sodium 138, Potassium 3.8, Chloride 106, Carbon Dioxide 26.0, Anion Gap 6, BUN 12, Creatinine 0.61, Estim Creat Clear Calc 50.91, Est GFR (MDRD) Af Amer 125, Est GFR (MDRD) Non-Af 103, BUN/Creatinine Ratio 19.7, Glucose 165 H, Calcium 8.0 L, Total Bilirubin 0.40, AST 132 H, ALT 38, Alkaline Phosphatase 63, Total Protein 6.3 L, Albumin 2.5 L, Globulin 3.8, Albumin/Globulin Ratio 0.7 L, Triglycerides 203 H, Cholesterol 114, LDL Cholesterol 22, VLDL Cholesterol 41 H, HDL Cholesterol 51, TSH 2.67 07/19/23 06:50: APTT 73.6 H 07/19/23 13:05: APTT 42.3 H 07/19/23 13:17: Troponin I High Sens 8398 H* 07/19/23 14:04: POC Glucose 147 H Micro: Microbiology 07/18/23 04:55 Sputum, Induced/Lukens Gram Stain - Final 07/18/23 04:55 Sputum, Induced/Lukens Respiratory Culture - Preliminary 07/18/23 07:17 Mucosa - Nasopharyngeal - Final 07/18/23 05:00 Urine Catheter - Catheter Legionella Antigen - Final 07/18/23 05:00 Urine Catheter - Catheter Streptococcus pneumoniae Antigen (M - Final ABG Data ABG results: ABG 07/19/23 05:59 Specimen Type ART Sample Site R Radial pH 7.32 L Bicarbonate Actual 26.2 H Total CO2 28 Base Excess 0 O2 Saturation 91 L O2 % 40.0 ABG pCO2 50.6 H ABG pO2 68 L Catalino Test Positive O2 Delivery Device AeroMask Vent Mode CPAP/PS POC PEEP 5 Radiography Diagnostic Testing: Radiology Impression Chest X-Ray 07/19/23 12:10 IMPRESSION: * Interval worsening of patchy consolidation and interstitial edema throughout both lungs and in the perihilar regions, most pronounced in the right infrahilar aspect of the right lung. * Interval development of small bilateral pleural effusions Electronically Signed: Serafin Garcia MD at 13:02 EST , Rhythm Strip Rhythm Strip: Sinus Rhythm Rate: 54 Ectopy: - (EKG/telemetry with junctional rhythm intermittently) Physical Exam Const alert Constitutional Narrative: Patient is lethargic, she does respond to verbal and tactile stimulation however Orientation / Consciousness: lethargic HEENT head/scalp atraumatic Head and Scalp: normocephalic Resp Resp Narrative: Is currently on BiPAP at this time, she appears comfortable at rest, there are inspiratory rales at the bases bilaterally Cardio regular rate, regular rhythm, S1 normal heart sound, S2 normal heart sound and no rub GI normal to inspection, nondistended, normoactive bowel sounds, soft to palpation, non-tender and non-distended Extremity no clubbing, cyanosis or edema Neuro CN's II-XII intact bilaterally, moves all extremities and no focal motor deficits Sensorium / Orientation: awake Psych Psych Narrative: Patient is awake and responds to verbal and tactile stimulation, she does appear lethargic however. Assessment & Plan Assessment/Plan (1) Cardiac arrest with ventricular fibrillation: PLAN: Plan 1. Cardiac arrest with ventricular fibrillation-status post defibrillation- with non-STEMI, again I talked at length with the patient's family and their wishes are for the patient to be transferred to a tertiary facility, we are currently awaiting a bed at [facility]. Patient is a full code, there was some discussion before that the patient would not have wanted to be intubated but the clarified this and said that if there was no hope the patient stated in the past that she would not want to be on the ventilator. Since we do not know the etiology of the patient's cardiomyopathy and non-STEMI, family agrees that they want to be aggressive-I think this is appropriate. #2 hypoxic respiratory failure secondary to pulmonary edema-patient was placed on a Lasix drip this afternoon, she is currently on BiPAP, critical care is participating in her care #3 possible sepsis-patient remains on empiric antibiotics at this time #4 cardiomyopathy-etiology unclear, ischemic cardiomyopathy should be ruled out #5 essential hypertension #6 hyperlipidemia patient was on Lipitor and Zetia as an outpatient Clinical time spent by myself addressing the patient's medical issues, reviewing all of her data, and collaborating with the patient's care team: 50 minutes Charges/Coding Visit Charges Inpatient E&M: 85132 [facility] Hosp L3
[2023-07-19] MEDS: Furosemide 500 MG in Empty Viaflex 50 mL 1 EACH CONT INF (15:37)
[2023-07-19] MEDS: dexMEDEtomidine 400 MCG in 0.9% Normal Saline (100mL Bag) 96 ML 26.5 MCG CONT INF ×2 (16:15→20:00)
[2023-07-19 18:52] LABS: Vancomycin, Trough Level 9.2 ug/mL (5.0-15.0)
--- NOTE | 2023-07-19 19:38 | PCM.RX.CS ---
Consult Antibiotic Management Pharmacy has been consulted to manage selected antiobiotic: Vancomycin Labs Labs: Sodium 138 mmol/L (136-145) 07/19/23 03:10 Potassium 3.8 mmol/L (3.5-5.1) 07/19/23 03:10 Chloride 106 mmol/L (98-107) 07/19/23 03:10 Carbon Dioxide 26.0 mmol/L (21.0-32.0) 07/19/23 03:10 Anion Gap 6 (5-15) 07/19/23 03:10 BUN 12 mg/dL (7-18) 07/19/23 03:10 Creatinine 0.61 mg/dL (0.55-1.02) 07/19/23 03:10 Est GFR (MDRD) Af Amer 125 mL/min (>60) 07/19/23 03:10 Est GFR (MDRD) Non-Af 103 mL/min (>60) 07/19/23 03:10 BUN/Creatinine Ratio 19.7 RATIO (10-20) 07/19/23 03:10 Glucose 165 mg/dL (74-106) H 07/19/23 03:10 Vancomycin Trough 9.2 ug/mL (5.0-15.0) 07/19/23 18:20 Microbiology Microbiology: Microbiology 07/18/23 04:55 Sputum, Induced/Lukens Gram Stain - Final 07/18/23 04:55 Sputum, Induced/Lukens Respiratory Culture - Preliminary 07/18/23 07:17 Mucosa - Nasopharyngeal - Final 07/18/23 05:00 Urine Catheter - Catheter Legionella Antigen - Final 07/18/23 05:00 Urine Catheter - Catheter Streptococcus pneumoniae Antigen (M - Final Goal Trough Goal Trough: 15-20 mcg/mL Pharmacy Plan for Drug Dosing Pharmacy Plan for Drug Dosing: VANCOMYCIN LEVEL RECEIVED Current Vancomycin Dose: 1000MG IV Q12HR Number of Doses Received: 3 Vancomycin Level: 9.2 Hours Since Last Dose: 11.5HR Renal Function: 0.61 Renal Function Trend: STABLE Lab/Micro: All Cx NGTD Vancomycin Plan/Comments: Patient had a trough drawn which resulted in a value of 9.2 (goal 15-20). Patient's trough level is subtherapeutic. Will increase dose of vancomycin to 1500mg IV Q12hr to start 07/19/23 @1999. Will recheck a trough prior to 4th dose of new regimen. Pending Level: 07/21/23 @0206 Pharmacy Service will continue to monitor and adjust dosing as required.
[2023-07-19] MEDS: Vancomycin HCl 1,500 MG in 0.9% Normal Saline (500mL Bag) 500 ML 250 MG IV (20:02)
[2023-07-19 20:11] LABS: Partial Thromboplast Time 67.5 Seconds (24.1-36.2)
--- NOTE | 2023-07-20 13:46 | PCM.DC.SUM ---
Providers Date of Admission: 07/18/23 Date of Discharge: 07/19/23 Primary Care Physician: Dr. Mihaela Ashraf, DO Consultations 07/18/23 06:17 Consult: Cardiology Urgent Consulting Provider: Antonio Silvestre Reason for Consult: Chest Pain EMERGENT Consult: No MD Notified: Yes Date Notified: 07/18/23 Time Notified: 06:17 Method of Notification: ED Physician Initiated Method of Consult:: In-Person 07/18/23 06:17 Consult: Multiple Knife Edge Trimmer Operator / Pulmonary Medicine Routine Consulting Provider: [facility] Reason for Consult: Cardiac arrest due to ventricular fibrillation, NSTEMI and PNA with Sepsis EMERGENT Consult: No MD Notified: Yes Date Notified: 07/18/23 Time Notified: 06:12 Method of Notification: Text Reason For Visit: cardiac arrest due to ventricular fibrillation Diagnosis Discharge Diagnosis (1) Cardiac arrest with ventricular fibrillation: Status: Acute Code(s): I46.9 - Cardiac arrest, cause unspecified; I49.01 - Ventricular fibrillation Plan 1. Cardiac arrest with ventricular fibrillation-status post defibrillation- with non-STEMI, again I talked at length with the patient's family and their wishes are for the patient to be transferred to a tertiary facility, we are currently awaiting a bed at [facility]. Patient is a full code, there was some discussion before that the patient would not have wanted to be intubated but the clarified this and said that if there was no hope the patient stated in the past that she would not want to be on the ventilator. Since we do not know the etiology of the patient's cardiomyopathy and non-STEMI, family agrees that they want to be aggressive-I think this is appropriate. #2 non-STEMI #3 hypoxic respiratory failure secondary to pulmonary edema/cardiogenic shock-patient was placed on a Lasix drip this afternoon, she is currently on BiPAP, critical care is participating in her care #4 possible sepsis-patient remains on empiric antibiotics at this time #5 cardiomyopathy-etiology unclear, ischemic cardiomyopathy should be ruled out #6 essential hypertension #7 hyperlipidemia patient was on Lipitor and Zetia as an outpatient Clinical time spent by myself addressing the patient's medical issues, reviewing all of her data, and collaborating with the patient's care team: 50 minutes Medications at Discharge Home Medications amlodipine 5 mg tablet 5 mg PO DAILY 07/18/23 atorvastatin 40 mg tablet 40 mg PO DAILY 07/18/23 ezetimibe 10 mg tablet 10 mg PO QHS 07/18/23 lisinopril 20 mg-hydrochlorothiazide 12.5 mg tablet 1 tab PO DAILY 07/18/23 sertraline 100 mg tablet 100 mg PO DAILY 07/18/23 Hospital Course Operations None Procedures 2-D Echocardiogram Summary of Care Provided Minutes Spent on Discharge: 33 Hospital Course: This 72-year-old white female was seen in the emergency room at [facility] after being brought in by squad with complaints of chest pain at her residence. When walking the patient to the ambulance at her residence, patient collapsed and was found to be in V-fib, she was defibrillated x 1 and went back into normal sinus rhythm. Upon arrival to the emergency room, patient was having respiratory distress and was intubated, chest x-ray showed bilateral infiltrates suggestive of either pneumonia or pulmonary edema. Patient was given IV antibiotics and admitted to ICU, she was seen by critical care, IV antibiotics were continued, echocardiogram was obtained which showed a reduced EF at 25%. Patient's cardiac enzymes were abnormal indicating a non-STEMI. Patient was seen in consultation by cardiology. On 07/19/2023, patient was extubated but required BiPAP due to recurrent pulmonary edema, she was placed on a Lasix drip, conversations were carried out with the patient's family as to whether to transfer the patient to a tertiary facility which have the capability of bypass surgery if needed, patient's family requested this and arranges were made to transfer the patient to [facility] in [place]. On 07/19/2023, patient was seen and examined: On examination she appeared lethargic, she does not appear to be in any distress. Vital signs as documented. Skin warm and dry and without overt rashes. Neck without JVD, thyroid appears normal, trachea is midline, neck is supple. Lungs-inspiratory rales were noted at the bases bilaterally, decreased breath sounds were noted overall. Heart exam notable for regular rhythm, normal sounds and absence of murmurs, rubs or gallops. Abdomen unremarkable and without evidence of organomegaly, masses, or abdominal aortic enlargement, bowel sounds are present in all 4 quadrants, no abdominal tenderness was noted. Extremities nonedematous, no cyanosis was noted, no clubbing was noted. Neuro: Cranial nerves II through XII are grossly intact, no focal motor deficits were noted, sensation to light touch and pinprick is intact, motor exam 5/5 throughout. Psych: Patient is lethargic but responsive to verbal and painful stimuli and answers questions appropriately On 07/19/2023, patient was transferred to [facility] in [facility] in stable condition. Weight / BMI Weight Weight: 106 kg Body Mass Index (BMI) 36.6 ABG / Lab / Microbiology Data 07/19/23 03:10 07/19/23 03:10 Laboratory: Laboratory Results - last 24 hr 07/19/23 13:17: Troponin I High Sens 8398 H* 07/19/23 14:04: POC Glucose 147 H 07/19/23 18:20: Vancomycin Trough 9.2 07/19/23 19:52: APTT 67.5 H Microbiology: Microbiology 07/18/23 04:55 Sputum, Induced/Lukens Gram Stain - Final 07/18/23 04:55 Sputum, Induced/Lukens Respiratory Culture - Final 07/18/23 07:10 Blood Culture (Wb) - Anticubital Left Blood Culture - Preliminary No growth in 48 hours. 07/18/23 04:40 Blood Culture (Wb) - Left Forearm Blood Culture - Preliminary No growth in 48 hours. 07/18/23 07:17 Mucosa - Nasopharyngeal - Final 07/18/23 05:00 Urine Catheter - Catheter Legionella Antigen - Final 07/18/23 05:00 Urine Catheter - Catheter Streptococcus pneumoniae Antigen (M - Final Meaningful Use Info Meaningful Use Diagnoses (Choose all that apply): AMI AMI/Post PCI/Angioplasty Aspirin given w/in 24hrs of arrival?: Yes ASA at discharge?: Yes Antiplatelet Therapy at Discharge:: Yes Statins at discharge?: Yes Chano/ARB at discharge?: Yes Beta Stormy at discharge?: No Reason Beta Stormy not ordered:: Hypotension Done w/ Acute MS measure.: Yes Documented LVEF (%): 25 CHF CHANO/ARB ordered at discharge?: No Reason CHANO/ARB not ordered?: Hypotension Documented LVEF (%): 25 Discharge Plan Admission Admit Date/Time: 07/18/23 06:10 Attending Provider: Palmer Carranza Primary Care Provider: Mihaela Ashraf Consulting Providers: Rip Bonilla; Gaetano Garces; Pelon Brock; Tesfaye Barnett; Barb Galaviz MANAGER OF DEVELOPMENT; Canelo Pierce; Celsa Antonio; Charlie Javier; Maura Retana; Frank Reyes; Ba Dumont; Kyle Sosa; Abhishek Landon; Tan Brooks; Ron Roque; Marquise Gandhi; Yanick Barcenas; Sobeida Forrest; Alvaro Crandall; Nguyễn Sullivan; Bulmaro Manrique; Raudel Mae; Brian Horton; Delgado Aponte MANAGER OF DEVELOPMENT; Celsa Oakley MANAGER OF DEVELOPMENT; Judith Belcher PA; Canelo Elise Discharge Orders/Prescriptions Prescriptions: No Action lisinopril-hydrochlorothiazide 20-12.5 mg tablet 1 tab PO DAILY atorvastatin 40 mg tablet 40 mg PO DAILY amlodipine 5 mg tablet 5 mg PO DAILY sertraline 100 mg tablet 100 mg PO DAILY ezetimibe 10 mg tablet 10 mg PO QHS Referrals / Follow Up: Mihaela Ashraf DO [Primary Care Provider] - Disposition Disposition (needs filled in before D/C Order can be placed): DC/Tx to Another Type of HCF Charges/Coding Visit Charges Inpatient E&M: 52213 Disch Hosp >30min
== END 2023-07-19 21:02 | disposition short-term general hospital (02) | DRG 871 ==
LOC: ED 04:24 → ICU 05:37
PROVIDERS: Internal Medicine; Internal Medicine Critical Care Medicine; Internal Medicine Interventional Cardiology; Admitting Provider Internal Medicine; Emergency Provider Emergency Medicine; PCP Internal Medicine; Visit Provider Internal Medicine
DX: A41.9 Sepsis, unspecified organism (principal); I49.01 Ventricular fibrillation; J96.01 Acute respiratory failure with hypoxia; J69.0 Pneumonitis due to inhalation of food and vomit; I21.4 Non-ST elevation (NSTEMI) myocardial infarction; I42.9 Cardiomyopathy, unspecified; J81.1 Chronic pulmonary edema; R65.20 Severe sepsis without septic shock; I10 Essential (primary) hypertension; F32.A Depression, unspecified; E78.5 Hyperlipidemia, unspecified; I25.10 Atherosclerotic heart disease of native coronary artery without angina pectoris; Z68.38 Body mass index [BMI] 38.0-38.9, adult; E66.9 Obesity, unspecified; Z79.899 Other long term (current) drug therapy
CPT/HCPCS: 31500; 31720; 36569; 36600; 51702; 71045; 80048; 80053; 80061; 80076; 80202; 80307; 82077; 82550; 82803; 82962; 83605; 83690; 83735; 83880; 84443; 84478; 84484; 85025; 85027; 85379; 85610; 85730; 87040; 87070; 87205; 87449; 87631; 92950; 93005; 93306; 94002; 94003; 94660; 94668; 97162; 97803; 99285; J2185; J7030; J7040; J7050; J7120; Q9957; A4216; C8929; J1940

== ENCOUNTER → 2023-09-08 | Outpatient (CLI) | payer OTHER, SELFPAY ==
--- NOTE | 2023-09-08 12:49 | PCM.CR.HP2 ---
CR - History & Physical General Arrival date:: 09/08/23 Arrival time:: 12:52 Date of Referral:: 08/21/23 Date of CR Evaluation:: 09/08/23 Referring Physician: Martha Ricks History of Present Cardiac Event Onset Date PTCA or coronary stenting:: Yes Medications Ambulatory Orders Medication Instructions Recorded amlodipine 5 mg tablet 5 mg PO DAILY 07/18/23 atorvastatin 40 mg tablet 40 mg PO DAILY 07/18/23 ezetimibe 10 mg tablet 10 mg PO QHS 07/18/23 lisinopril 20 1 tab PO DAILY 07/18/23 mg-hydrochlorothiazide 12.5 mg tablet sertraline 100 mg tablet 100 mg PO DAILY 07/18/23 Allergies Allergies Penicillins Allergy (Verified 07/18/23 04:43) PT UNABLE TO RESPOND-NEEDS F/U Sleep Disorder Evaluation Hx of Sleep Apnea: No Do you snore loudly (louder than talking or can be heard through closed doors)?: No Do you often feel tired/ fatigued/ sleepy during daytime?: No Has anyone observed you stop breathing during sleep?: No History of Hypertension (for STOP score): Yes STOP Results: Negative Advanced Directives Advanced Directives Power of Security Alarm Installer: No Living Will: No Advance Directives Information Provided: No Advance Directives on File: No DNR Order?:: No Past Medical History Covid-19 Screening Physicial Symptoms Other Clinical Concerns Exposure Risk Pertinent Comorbidities Has a serious heart condition:: Yes Past Medical Illness Past Medical History (Updated 07/27/23 @ 00:01 by Background Daemon) Cardiomyopathy I42.9 Heart murmur R01.1 Hypertension I10 Social History Smoking History Smoking Status: Never smoker Alcohol Use Alcohol Usage: No Occupation Occupation (List type of work in comments):: Employed and Retired Hours worked per day:: 8 Hobbies, Recreation, Social Activities Hobbies: None Social Environment Status Marital Status: Current Living Arrangements Living Environment:: Family Children How many children do you have?: 2 Do any of your children live nearby?: Yes Safety Do you feel safe in your surroundings?: Yes Assistance Do you need any assistance at home?: no Risk Factor Assessment Vital Signs Pulse Ox: 94 Blood Pressure: 120/64 Pulse Pulse Rate: 74 Pulse Rhythm: Regular Hypertension How long have you been treated?: several years Obesity Height: 5 ft Weight:: 192 lb Weight in Pounds: 192.0 lbs Body Mass Index (BMI): 37.5 Nutritional Referral for Obesity: No Physical Inactivity Physical Inactivity: None Risk Stratification Risk Guidelines: Lowest Risk: Risk Factor for Smoking and Risk Factor for Depression, Moderate Risk: Risk Factor for Diabetes and Risk Factor for Sedentary Lifestyle and Highest Risk: Risk Factor for Dyslipidemia, Risk Factor for Obesity and Risk Factor for Hypertension For Smoking Smoking Risk Guidelines For Dyslipidemia Dyslipidemia Risk Guidelines For Diabetes Mellitus Diabetes Risk Guidelines For Obesity/Overweight Obesity/Overweight Risk Guidelines For Hypertension Hypertension Risk Guidelines For Sedentary Lifestyle Sedentary Lifestyle Risk Guidelines For Depression Depression Risk Guidelines Motivation Motivation to Participate On a scale of 1 to 10, how prepared are you to commit to attending program?: 1 What do you see as barriers to successfully being able to complete the program?: finacial Do you have a spouse or signficant other, family or friends who will help support you to complete the program?: yes
[2023-09-08 13:21] VITALS: BP 120/64; PULSE 74; O2SAT 94; BMI 37.5
--- NOTE | 2023-09-08 13:32 | PCM.CR.ITP ---
Diagnosis General Information Admitting Diagnosis: PTCA, MA Personal Learning Style:: Audio/Visual Stage of change r/t lifestyle modifications:: Contemplation Gave educational material for:: Treating Heart Disease, How The Heart Works, What it means to have Heart Disease, How Coronary Artery Disease is Diagnosed, Heart Procedures, What Heart Medications Do, Risk Factors & Modifications, Living an Active Life, Nutrition, Emotions & Heart Disease, Stress Management & Relaxation and Sleep Disorders & Heart Disease Education/Goals Cardiac Rehabilitation Goals Personal Goals: Initial Assessment: Participate in home exercise program and Control risk factors (learn risk factor modification) Scale for measuring improvement of personal goals Diagnosis & Disease Process Outcomes/Goals: Pt IDs own risk factors & lifestyle modifications by Session 10, Verbalizes symptoms of angina & response by session 3., Pt independently manages and Other Additional Outcomes/Goals: Plan/Interventions: Assist Pt to ID & engage in lifestyle modification to reduce CVD risk, Instruct on individual risk factors, Review symptoms of angina & emergency actions, Review secondary diagnosis & identify educational needs. and Other see comment 30 day Reassessments:: Not Met 30 day Reassessments:: Not Met 30 day Reassessments:: Not Met 30 day Reassessments:: Not Met Final Reassessments:: Not Met Safety Referral to Physical Therapy: No Referral to [facility] Case Management: No Fall Risk Assessed:: Yes Assistive Devices:: None Exercise - Initial Assessment Visit Date of Eval: 09/08/23 (initial eval ) Mets: Pre-: >3 METS for 30 minutes by discharge, >5 METS for 30 minutes by discharge, >7 METS for 30 minutes by discharge and Unable to meet goal due to: (see comment below) Physician Prescribed Exercise Modalities: Treadmill, Rower, Airdyne, NuStep, SciFit and Lateral Composite Layup Worker Frequency: 2x/week for 18 weeks [36 sessions] and 3x/week for 12 weeks [36 sessions] Intensity: 60-80% of age predicted maximum heart rate reserve Duration: 30 - 45 minutes Current METSs:: 3 Target Heart Rate:: 90-105 Resting Blood Pressure: 120/64 EKG Type: NSR nonspecific intra ventricular conduction block Outcomes & Goals Goals:: Verbalizes understanding of THR, RPE & goal METS by session 6, Documents in home exercise log/reports 30 min aerobic 5 day/wk by DC, Demonstrates accurate pulse taking by DC and Other additional outcome/goals: see below Intervention & Plan Exercise Program Goals: Instruct on personal THR & RPE, Instruct on MET level & personal MET goal, Show patient to take own pulse /validate performance until accurate, Instruct on home exercise and Other additional plan/int Physical Activity Home Exercise Physical Activity - Home Exercise: Safe Exercise, Warm-up, Self-monitoring, Cool-Down, Home Exercise > 30 min Daily and Sitting Time <3 hours/daily Outcomes & Goals Outcomes/Goals: Demonstrates correct Warm-up/exercise Cool-Down (S3) if = 2.5 METs, Verbalizes symptoms of exercise intolerance by Session 3 (S3), Demonstrate safe equipment use (S3) & follows exercise prescrition (6) and Other: See below Intervention & Plan Plan/Intervention: Instruct warm-up & cool-down if exercising at > 2 METs, Instruct on symptoms of exercise intolerance & actions to take, Instruct & monitor on saf, Assess intial functional capacity & safety risk and Other See below Nutrition - Initial Assessment Program Goals Nutrition Program Goals Patient has diagnosis of Hyperlipidemia (ICD E78)?: No Visit Date of Eval: 09/08/23 (initial eval ) Cholesterol/Lipids (Other Core Measures) Determine presence & major risk factors that modify LDL goal: Cigarette smoking, Hypertension or hypertensive medication, Low HDL cholesterol <40 mg/dL*, Family history of premature CHD in Male < 55 years: female <65 yearsFa and Age men > 45 years; women >/= 55 years Outcomes/Goals: Pt IDs own risk factors & lifestyle modifications by Session 10, Verbalizes symptoms of angina & response by session 3., Pt independently manages and Other Additional Outcomes/Goals: Intervention/Plan: Advocate for lipid panel cholesterol medication if applicable, Instruct on personal lipid levels & lipid goals/NCEP guidelines, Instruct on cholesterol and Other additional plan/int Weight Mgt (Other Care) Height: 5 ft Weight:: 192 lb BMI: 37.5 Diagnosis Overweight/Obesity BMI> 30% ICD-10 E66: Yes Diagnosis High BMI/Morbid Obesity BMI> 35% ICD-10 Z68: Yes Outcomes/Goals: Pt sets, maintains & shows weight loss goal & trend during rehab and Other additional outcomes/goals Intervention/Plan: Instruct on ideal BMI & set weight loss goal w/patient, Assist pt to ID & incorporate diet changes for weight loss by S9, Refer to Structured Weight Loss program as appropriate, Encourage goal of using 250-300dcal per session for weight loss and Other additional plan/interventions Healthy Eating Habits Will attend diet classes:: Yes Outcomes/Goals:: Consume diet rich in vegs,fruits,whole grain/high fiber,fish,lean meat, Limit sat/trans fats,cholesterol & added salts & sugars and Other additional outcome/goals: Intervention/Plan:: Assess current eating habits and Other Additional plan/interventions Education Gave educational materials for:: Signs & symptoms of hypoglycemia, Signs & symptoms of hyperglycemia, Relate diabetes to coronary artery disease and Healthy eating Core - Initial Assessment Visit Date of Eval: 09/08/23 (initial eval ) Medication Compliance Preventative Medication(s):: Aspirin, Statin/lipid and Beta jon Doesn?t believe in the benefits of treatment?: No Believes medications are unnecessary or harmful?: No Has a concern about medication side effects?: No Expresses concern over the cost of medications?: No Outcomes/Goals: Verbalizes medications,desired effect & common side effects @ DC, Pt self-reports following medication regimen, Keeps card in wallet w/medications listed by DC and Other additional outcome/goals: Interventions/plans: Instruct on medication effects & side effects, Review medication list w/patient every two weeks, Instruct importance of taking meds as ordered & assist problem solving and Other additional Hypertension Resting Blood Pressure:: 120/64 [place] [employer] Hypertension Guidelines Outcomes/Goals: Able to verbalize/achieve optimal blood pressure <130/80, Incorporates diet changes & exercise for blood pressure control by DC and Other additional outcomes/goals Tobacco Cessation Referral Smoking Cessation Referral:: No Individual Education/Counseling:: No Education Schedule Given:: Yes Psychosocial - Initial Assess VIsit Date of Eval: 09/08/23 (initial eval ) Target Goals Target Goals Outcomes/Goals: See list Psychosocial Outcomes/Goals:: ID's personal stressors & 2 strategies to manage stress by discharge and Other Additional outcome/goals: Intervention/Plan: See List Interventions/Plan:: Assess stressors,coping strategies & signs of derpression on admission, Instruct/assist pt to develop coping & personal stress Mgt strategies, Refer to Behavioral Health if appropriate, Refer to Physician if appropriate, Instruct patient to recognize signs & symptoms of depression, Instruct patient to recog and Other additional plan/intervention Patient Health Questionnaire PHQ-9 Screening Initial Assessment: 1. Little interest or pleasure in doing things: Not at all 2. Feeling down, depressed, or hopeless: Not at all 3. Trouble falling or staying asleep, or sleeping too much: Not at all 4. Feeling tired or having little energy: Not at all 5. Poor appetite or overeating: Not at all 6. Feeling bad about yourself -- or that you are a failure or have let yourself or your family down: Not at all 7. Trouble concentrating on things, such as reading the newspaper or watching television: Not at all 8. Moving or speaking so slowly that other people could have noticed. Or the opposite - being so fidgety or restless that you have been moving around a lot more than usual: Not at all 9. Thoughts that you would be better off , or of hurting yourself in some way: Not at all How difficult have these problems made it for you to do your work, take care of things at home, or get along with other people?: Not difficult at all Total Score: 0 NADYA-Q SV Test Statements CAD is a disease of the arteries in the heart: False Examples of risk factors for heart disease: True Angina is chest pain or discomfort: True The benefits of resistance training include: True Eating more meat and dairy products: False Anti-platelet medications such as aspirin are important: True The only effective way to manage stress: False An exercise warm-up slowly increases heart rate: True Prepared, processed foods usually have high sodium: True Depression is common after a heart attack: True The statin medications lower cholesterol: True To control blood pressure, lower the amount of sodium: True If someone gets chest discomfort during walking: False Transfats are partially hydrogenated vegetable oils: True Sleep apnea that is not treated increases the risk: False To control cholesterol, one should become a vegetarian: False Someone knows if he/she is exercising at the right level: True Diabetes cannot be prevented with exercise & health eating: False Stress is a large risk for heart attack: True A diet that can help lower blood pressure is rich in: True Total Score Total Correct Responses: 20 Self-Efficacy 6-Item Scale Initial Assessment: We would like to know how confident you are in doing certain activities. Please select your confidence level for: Fatigue Select Number: 10 Physical Discomfort or Pain Select Number: 10 Emotional Distress Select Number: 10 Other Symptoms or Health Problems Select Number: 10 Different Tasks and Activities Select Number: 10 Medication Select Number: 10 Total Score:: 10 Nutrition Survey Nutrition Survey Instructions Scoring Instructions Nutrition Survey Initial: Have you lost >10 lbs over the past 2 months without trying?: No Are you following a special diet at home for diabetes, low fat, or low salt?: Yes Are you interested in meeting with a dietitian for help understanding your diet?: No Do you eat less than 3 meals a day?: No Do you eat fatty meats (cordero, sausage, ribs, etc), fried foods, desserts, large amounts of salad dressings, margarine, butter, or cheese most days?: No Do you have food allergies? [Enter types in comment field]: No Do you eat in restaurants more than 3 times a week?: No Do you season food with salt, seasoning salt, or garlic salt?: No Do you used canned, boxed, frozen meals, or soups, seasoning packets?: No Total Score:: 1 Exercise - Final/Discharge Physician Prescribed Exercise Modalities: Treadmill, Rower, Airdyne, NuStep, SciFit and Lateral Composite Layup Worker Frequency: 2x/week for 18 weeks [36 sessions] and 3x/week for 12 weeks [36 sessions] Intensity: 60-80% of age predicted maximum heart rate reserve Current METSs:: 3 Target Heart Rate:: 90-105 Nutrition - 30-Day Assessment Weight Mgt (Other Care) Height: 5 ft Weight:: 192 lb BMI: 37.5 Nutrition - 60-Day Assessment Weight Mgt (Other Care) Height: 5 ft Weight:: 192 lb BMI: 37.5 Core - Final Assessment Hypertension Resting Blood Pressure:: 120/64 [place] [employer] Hypertension Guidelines Core - 60-Day Assessment Hypertension Resting Blood Pressure:: 120/64 [place] [employer] Hypertension Guidelines Psychosocial - 30-Day Assess Target Goals Target Goals Psychosocial - 60-Day Assess Target Goals Target Goals Psychosocial - 90-Day Assess Target Goals Target Goals Psychosocial - Final Assessmen Target Goals Target Goals Nutrition - 90-Day Assessment Weight Mgt (Other Care) Height: 5 ft Weight:: 192 lb BMI: 37.5 Nutrition - Final Assessment Program Goals Patient has diagnosis of Hyperlipidemia (ICD E78)?: No Weight Mgt (Other Care) Height: 5 ft Weight:: 192 lb BMI: 37.5
[2023-09-08 13:39] VITALS: BP 120/64
[2023-09-08 13:41] VITALS: BP 120/64
[2023-09-08 13:43] VITALS: BMI 37.5
== END | disposition home or self-care (01) ==
PROVIDERS: PCP Internal Medicine
DX: I25.10 Atherosclerotic heart disease of native coronary artery without angina pectoris (principal)